=== PATIENT | male | born 1960 | race Caucasian/White ===

== ENCOUNTER 2022-06-17 14:37 | Inpatient (IN) | payer MEDICARE, OTHER ==
[~2022-06-17] VITALS: Ht 180.3 cm; Wt 66.1 kg
[~2022-06-17 14:37] MED LIST: CELE100C; FLUO10TA2
[2022-06-17 16:10] VITALS: BP 117/76
[2022-06-17] MEDS ORDERED: PIPERACILLIN/TAZOBACTAM SOD 3.375 GM in D5W MINI-BAG PLUS 50 ML IV SCH (16:50)
[2022-06-17] MEDS ORDERED: CYCL-707 PO (16:59)
[2022-06-17] MEDS ORDERED: NAPR220C23 PO (16:59)
[2022-06-17] MEDS ORDERED: HOME MED LIST COMPLETE! XX SCH (17:00)
[2022-06-17 17:53] LABS: HEMATOCRIT 31.7 % (42.0-52.0); HEMOGLOBIN 10.6 g/dl (13.5-17.5); MEAN CORPUSCULAR HEMOGLOBIN 27.2 pg (27.0-33.0); MEAN CORPUSCULAR HGB CONC 33.4 g/dl (32.0-36.5); MEAN CORPUSCULAR VOLUME 81.5 fl (80.0-96.0); PLATELET COUNT, AUTOMATED 149 10^3/uL (150-450); RED BLOOD COUNT 3.89 10^6/uL (4.30-6.10); WHITE BLOOD COUNT 5.7 10^3/uL (4.0-10.0)
[2022-06-17] MEDS ORDERED: LIDOCAINE 2% 5ML JELLY UROJET TOP ONE (18:00)
[2022-06-17 18:41] LABS: ALBUMIN 3.7 GM/DL (3.2-5.2); BILIRUBIN,TOTAL 0.4 MG/DL (0.2-1.0); CALCIUM LEVEL 9.4 MG/DL (8.8-10.2); CREATININE FOR GFR 2.28 MG/DL (0.70-1.30); GLOMERULAR FILTRATION RATE 31.3 (>49); POTASSIUM SERUM 4.4 MEQ/L (3.5-5.1)
[2022-06-17 20:00] VITALS: BP 117/82
[2022-06-17] MEDS: PIPERACILLIN/TAZOBACTAM SOD 2.25 GM in D5W MINI-BAG PLUS 50 ML IV SCH (20:17)
[2022-06-17] MEDS ORDERED: ALPRAZolam 0.5 MG TAB PO ONE (22:35)
[2022-06-18] VITALS (21 sets, daily range): BP systolic 60–117; BP diastolic 54–75
[2022-06-18] MEDS ORDERED: HYDROMORPHONE HCL 0.5 MG/ 0.5 ML SYRINGE (J1170 PER 1) IV ONE (02:00)
[2022-06-18] MEDS: PIPERACILLIN/TAZOBACTAM SOD 2.25 GM in D5W MINI-BAG PLUS 50 ML IV SCH ×4 (02:09→20:07)
[2022-06-18] MEDS ORDERED: NS 1,000 ML IV SCH (06:30)
[2022-06-18] MEDS ORDERED: NS 1,000 ML IV ONE ×2 (06:30)
[2022-06-18 07:05] LABS: HEMATOCRIT 37.6 % (42.0-52.0); HEMOGLOBIN 12.2 g/dl (13.5-17.5); MEAN CORPUSCULAR HEMOGLOBIN 26.7 pg (27.0-33.0); MEAN CORPUSCULAR HGB CONC 32.4 g/dl (32.0-36.5); MEAN CORPUSCULAR VOLUME 82.3 fl (80.0-96.0); PLATELET COUNT, AUTOMATED 181 10^3/uL (150-450); RED BLOOD COUNT 4.57 10^6/uL (4.30-6.10); WHITE BLOOD COUNT 10.6 10^3/uL (4.0-10.0)
[2022-06-18] MEDS ORDERED: HYDROCORTISONE 100 MG/2 ML VIAL (J1720 PER 1) IV STA (07:06)
[2022-06-18 07:38] LABS: CALCIUM LEVEL 8.9 MG/DL (8.8-10.2); CREATININE FOR GFR 2.71 MG/DL (0.70-1.30); GLOMERULAR FILTRATION RATE 25.7 (>49); POTASSIUM SERUM 3.9 MEQ/L (3.5-5.1)
[2022-06-18] MEDS ORDERED: NS 500 ML IV ONE (08:40)
[2022-06-18] MEDS ORDERED: PANTOPRAZOLE 40MG VIAL IV SCH (12:00)
[2022-06-18] MEDS: NS 1,000 ML IV SCH ×2 (12:03→18:14)
[2022-06-19] VITALS: BP 103/69
[2022-06-19] MEDS: PIPERACILLIN/TAZOBACTAM SOD 2.25 GM in D5W MINI-BAG PLUS 50 ML IV SCH ×4 (01:30→19:23)
[2022-06-19 04:00] VITALS: BP 99/54
[2022-06-19 05:15] LABS: HEMATOCRIT 27.8 % (42.0-52.0); MEAN CORPUSCULAR HEMOGLOBIN 26.9 pg (27.0-33.0); MEAN CORPUSCULAR HGB CONC 32.7 g/dl (32.0-36.5); MEAN CORPUSCULAR VOLUME 82.2 fl (80.0-96.0); PLATELET COUNT, AUTOMATED 127 10^3/uL (150-450); RED BLOOD COUNT 3.38 10^6/uL (4.30-6.10); WHITE BLOOD COUNT 6.7 10^3/uL (4.0-10.0)
[2022-06-19 05:17] LABS: HEMOGLOBIN 9.1 g/dl (13.5-17.5)
[2022-06-19 06:51] LABS: ALBUMIN 2.5 GM/DL (3.2-5.2); ALT/SGPT < 6 U/L (12-78); BILIRUBIN,TOTAL 0.3 MG/DL (0.2-1.0); BLOOD UREA NITROGEN 28 MG/DL (7-18); CALCIUM LEVEL 7.7 MG/DL (8.8-10.2); CARBON DIOXIDE LEVEL 24 MEQ/L (21-32); CHLORIDE LEVEL 101 MEQ/L (98-107); CREATININE FOR GFR 2.47 MG/DL (0.70-1.30); GLOMERULAR FILTRATION RATE 28.6 (>49); GLUCOSE, FASTING 197 MG/DL (70-100); POTASSIUM SERUM 3.6 MEQ/L (3.5-5.1); SODIUM LEVEL 132 MEQ/L (136-145); TOTAL PROTEIN 6.1 GM/DL (6.4-8.2)
[2022-06-19] MEDS ORDERED: NS 1,000 ML IV SCH (06:55)
[2022-06-19] MEDS: CYCLOBENZAPRINE 10MG TABLET PO PRN (07:51)
[2022-06-19 08:00] VITALS: BP 113/67
[2022-06-19] MEDS: NS 1,000 ML IV SCH ×2 (08:56→19:17)
[2022-06-19 14:00] VITALS: BP 100/64
[2022-06-19] MEDS: PERCOCET 5MG/325MG TAB PO PRN (18:51)
[2022-06-19] MEDS: oxyBUTYnin 5 MG TAB PO PRN (19:23)
[2022-06-19 20:00] VITALS: BP 118/71
[2022-06-20] MEDS: PIPERACILLIN/TAZOBACTAM SOD 2.25 GM in D5W MINI-BAG PLUS 50 ML IV SCH ×4 (01:07→19:57)
[2022-06-20] MEDS: PERCOCET 5MG/325MG TAB PO PRN ×2 (01:08→08:04)
[2022-06-20 04:00] VITALS: BP 114/58
[2022-06-20 05:47] LABS: HEMATOCRIT 26.1 % (42.0-52.0); HEMOGLOBIN 8.5 g/dl (13.5-17.5); MEAN CORPUSCULAR HEMOGLOBIN 26.8 pg (27.0-33.0); MEAN CORPUSCULAR HGB CONC 32.6 g/dl (32.0-36.5); MEAN CORPUSCULAR VOLUME 82.3 fl (80.0-96.0); PLATELET COUNT, AUTOMATED 132 10^3/uL (150-450); RED BLOOD COUNT 3.17 10^6/uL (4.30-6.10); WHITE BLOOD COUNT 4.7 10^3/uL (4.0-10.0)
[2022-06-20 06:15] LABS: CALCIUM LEVEL 7.9 MG/DL (8.8-10.2); CREATININE FOR GFR 2.15 MG/DL (0.70-1.30); GLOMERULAR FILTRATION RATE 33.5 (>49); POTASSIUM SERUM 3.2 MEQ/L (3.5-5.1)
[2022-06-20] MEDS ORDERED: POTASSIUM CHLORIDE 10MEQ SR TABLET PO ONE (07:00)
[2022-06-20 08:00] VITALS: BP 113/68
[2022-06-20] MEDS: oxyBUTYnin 5 MG TAB PO PRN (08:04)
[2022-06-20 08:14] LABS: MAGNESIUM LEVEL 1.7 MG/DL (1.8-2.4); PERCENT SATURATION 59.3 % (19.7-50.0)
[2022-06-20] MEDS ORDERED: MAG SULF 1GM/100ML (MAG RUN) 1 GM in IV 1 EA IV ONE (10:00)
[2022-06-20] MEDS: CYCLOBENZAPRINE 10MG TABLET PO PRN (10:06)
[2022-06-20] MEDS: NS 1,000 ML IV SCH ×2 (10:07→18:11)
[2022-06-20 12:00] VITALS: BP 111/72
[2022-06-20 16:30] VITALS: BP 112/67
[2022-06-20 21:32] VITALS: BP 108/65
[2022-06-21] VITALS (7 sets, daily range): BP systolic 104–131; BP diastolic 64–76
[2022-06-21] MEDS: NS 1,000 ML IV SCH (00:20)
[2022-06-21] MEDS: PERCOCET 5MG/325MG TAB PO PRN ×4 (00:21→20:42)
[2022-06-21] MEDS: PIPERACILLIN/TAZOBACTAM SOD 2.25 GM in D5W MINI-BAG PLUS 50 ML IV SCH ×3 (03:48→14:00)
[2022-06-21 06:18] LABS: HEMATOCRIT 24.8 % (42.0-52.0); HEMOGLOBIN 7.9 g/dl (13.5-17.5); MEAN CORPUSCULAR HEMOGLOBIN 26.6 pg (27.0-33.0); MEAN CORPUSCULAR HGB CONC 31.9 g/dl (32.0-36.5); MEAN CORPUSCULAR VOLUME 83.5 fl (80.0-96.0); PLATELET COUNT, AUTOMATED 141 10^3/uL (150-450); RED BLOOD COUNT 2.97 10^6/uL (4.30-6.10); WHITE BLOOD COUNT 4.8 10^3/uL (4.0-10.0)
[2022-06-21 06:55] LABS: CALCIUM LEVEL 7.9 MG/DL (8.8-10.2); CREATININE FOR GFR 1.82 MG/DL (0.70-1.30); GLOMERULAR FILTRATION RATE 40.7 (>49); MAGNESIUM LEVEL 1.8 MG/DL (1.8-2.4); POTASSIUM SERUM 3.3 MEQ/L (3.5-5.1)
[2022-06-21 08:09] LABS: FOLATE 2.3 ng/mL (>3.0)
[2022-06-21] MEDS ORDERED: FLUBLOK(EGG FREE)(QUAD)INFLUENZA VACC 0.5ML SYRINGE 18YRS & OLDER IM.IMMUN ONE (09:00)
[2022-06-21] MEDS ORDERED: POTASSIUM CHLORIDE 10MEQ SR TABLET PO ONE (12:35)
[2022-06-21] MEDS ORDERED: NS 1,000 ML IV ONE (12:55)
[2022-06-21 13:30] LABS: HEMATOCRIT 26.7 % (42.0-52.0); HEMOGLOBIN 8.8 g/dl (13.5-17.5)
[2022-06-21] MEDS: oxyBUTYnin 5 MG TAB PO PRN (13:43)
[2022-06-21 16:43] LABS: HEMATOCRIT 26.4 % (42.0-52.0); HEMOGLOBIN 8.5 g/dl (13.5-17.5)
[2022-06-21 17:06] LABS: CALCIUM LEVEL 7.8 MG/DL (8.8-10.2); CREATININE FOR GFR 1.76 MG/DL (0.70-1.30); GLOMERULAR FILTRATION RATE 42.3 (>49); POTASSIUM SERUM 3.4 MEQ/L (3.5-5.1)
[2022-06-21] MEDS: AMOXICILLIN 875 MG TAB PO SCH (20:42)
[2022-06-21] MEDS ORDERED: diphenhydrAMINE 25MG CAP PO ONE (22:15)
[2022-06-22 05:06] VITALS: BP 126/77
[2022-06-22] MEDS: oxyBUTYnin 5 MG TAB PO PRN ×2 (05:09→12:18)
[2022-06-22] MEDS: PERCOCET 5MG/325MG TAB PO PRN ×2 (05:09→12:19)
[2022-06-22] MEDS: AMOXICILLIN 875 MG TAB PO SCH (08:09)
[2022-06-22] MEDS: CYCLOBENZAPRINE 10MG TABLET PO PRN (12:58)
[2022-06-22] MEDS ORDERED: BACITAB PO (13:28)
[2022-06-22] MEDS ORDERED: OXYB5TAB10 PO (13:28)
[2022-06-22] MEDS ORDERED: SENO8.6T10 PO (13:28)
[2022-06-22] MEDS ORDERED: PERCOCET PO (13:28)
[2022-06-22] MEDS ORDERED: AMOX875T PO (13:28)
== END 2022-06-22 15:00 | disposition home or self-care (01) | DRG 872 ==
LOC: M MSPAV 16:10 → M ICU 06-18 07:19 → M MS5PR 06-20 16:14
PROVIDERS: ADMIT Internal Medicine Nephrology; ATTEND General Practice
PROC: 0T7D8ZZ Dilation of Urethra, Via Natural or Artificial Opening Endoscopic (ICD-10-PCS; principal; 2022-06-17)
DX: A41.9 Sepsis, unspecified organism (principal); N13.30 Unspecified hydronephrosis; N39.0 Urinary tract infection, site not specified; N17.9 Acute kidney failure, unspecified; R65.20 Severe sepsis without septic shock; M45.9 Ankylosing spondylitis of unspecified sites in spine; D64.9 Anemia, unspecified; M19.90 Unspecified osteoarthritis, unspecified site; F32.A Depression, unspecified; J45.909 Unspecified asthma, uncomplicated; R33.9 Retention of urine, unspecified; N35.912 Unspecified bulbous urethral stricture, male; I10 Essential (primary) hypertension; R31.9 Hematuria, unspecified; K21.9 Gastro-esophageal reflux disease without esophagitis

== ENCOUNTER 2022-07-06 21:22 | Inpatient (IN) | payer MEDICARE ==
[~2022-07-06] VITALS: Ht 180.3 cm; Wt 60.9 kg
[~2022-07-06 21:22] MED LIST changes: +AMOX875T PO; +BACITAB PO; +CYCL-707 PO; +NAPR220C23 PO; +OXYB5TAB10 PO; +PERCOCET PO; +SENO8.6T10 PO
[2022-07-06 22:33] LABS: BASO # 0.1 10^3/uL (0.0-0.2); BASO % 2.4 % (0.0-1.0); EOS # 0.5 10^3/uL (0.0-0.5); EOS % 10.3 % (0.0-3.0); HEMATOCRIT 31.2 % (42.0-52.0); HEMOGLOBIN 9.9 g/dl (13.5-17.5); LYMPH # 1.4 10^3/uL (1.5-5.0); LYMPH % 28.9 % (24.0-44.0); MEAN CORPUSCULAR HEMOGLOBIN 26.6 pg (27.0-33.0); MEAN CORPUSCULAR HGB CONC 31.7 g/dl (32.0-36.5); MEAN CORPUSCULAR VOLUME 83.9 fl (80.0-96.0); MONO # 0.3 10^3/uL (0.0-0.8); MONO % 6.6 % (2.0-8.0); NEUTROPHILS # 2.4 10^3/uL (1.5-8.5); NEUTROPHILS % 51.6 % (36.0-66.0); RED BLOOD COUNT 3.72 10^6/uL (4.30-6.10); WHITE BLOOD COUNT 4.7 10^3/uL (4.0-10.0)
[2022-07-06 22:41] LABS: INR 1.02; PROTHROMBIN TIME 13.6 SECONDS (12.5-14.5)
[2022-07-06 22:42] LABS: PARTIAL THROMBOPLASTIN TIME 39.2 SECONDS (24.8-34.2)
[2022-07-06 22:54] LABS: PLATELET COUNT, AUTOMATED 92 10^3/uL (150-450)
[2022-07-06 23:05] LABS: ALBUMIN 3.4 GM/DL (3.2-5.2); ALT/SGPT 11 U/L (12-78); BILIRUBIN,TOTAL 0.4 MG/DL (0.2-1.0); BLOOD UREA NITROGEN 10 MG/DL (7-18); CALCIUM LEVEL 8.2 MG/DL (8.8-10.2); CARBON DIOXIDE LEVEL 30 MEQ/L (21-32); CHLORIDE LEVEL 105 MEQ/L (98-107); CREATININE FOR GFR 1.16 MG/DL (0.70-1.30); GLOMERULAR FILTRATION RATE > 60.0 (>49); GLUCOSE, FASTING 83 MG/DL (70-100); POTASSIUM SERUM 2.9 MEQ/L (3.5-5.1); SODIUM LEVEL 140 MEQ/L (136-145); TOTAL PROTEIN 6.4 GM/DL (6.4-8.2)
[2022-07-06] MEDS ORDERED: POTASSIUM CHLORIDE 10MEQ SR TABLET PO ONE (23:50)
[2022-07-07 00:05] LABS: ACETAMINOPHEN LEVEL < 2.0 UG/ML (10.0-30.0); SALICYLATE LEVEL < 1.7 MG/DL (5.0-30.0)
[2022-07-07 01:30] LABS: ETHYL ALCOHOL (ETHANOL) < 0.003 % (0.000-0.010)
[2022-07-07 01:58] LABS: RSV AMPLIFICATION NEGATIVE (NEGATIVE)
[2022-07-07 02:09] LABS: AMPHETAMINES LEVEL URINE NEGATIVE (NEGATIVE); BARBITURATES URINE NEGATIVE (NEGATIVE); BENZODIAZEPINES URINE NEGATIVE (NEGATIVE); CANNABINOIDS URINE NEGATIVE (NEGATIVE); COCAINE METABOLITE URINE NEGATIVE (NEGATIVE); METHADONE URINE NEGATIVE (NEGATIVE); OPIATES URINE NEGATIVE (NEGATIVE); PHENCYCLIDINE URINE NEGATIVE (NEGATIVE)
[2022-07-07] MEDS ORDERED: LOPE-39 PO (03:46)
[2022-07-07] MEDS ORDERED: HOME MED LIST COMPLETE! XX SCH (03:50)
[2022-07-07 14:28] LABS: BLOOD UREA NITROGEN 10 MG/DL (7-18); CALCIUM LEVEL 8.8 MG/DL (8.8-10.2); CARBON DIOXIDE LEVEL 27 MEQ/L (21-32); CHLORIDE LEVEL 109 MEQ/L (98-107); CREATININE FOR GFR 1.13 MG/DL (0.70-1.30); GLOMERULAR FILTRATION RATE > 60.0 (>49); GLUCOSE, FASTING 116 MG/DL (70-100); POTASSIUM SERUM 4.3 MEQ/L (3.5-5.1); SODIUM LEVEL 143 MEQ/L (136-145)
[2022-07-07] MEDS ORDERED: ACETAMINOPHEN TAB 650MG DOSE (2X325MG) PO PRN (16:30)
[2022-07-07] MEDS ORDERED: traZODone 50 MG TAB PO PRN (16:30)
[2022-07-07] MEDS ORDERED: NICOTINE 7 MG/24 HR TRANSDERMAL TD PRN (16:30)
[2022-07-07 22:36] VITALS: BP 113/78
[2022-07-08] MEDS ORDERED: LORazepam 2 MG/ML VIAL IM STA (00:02)
[2022-07-08 06:30] VITALS: BP 108/61
[2022-07-08 16:14] VITALS: BP 108/72
[2022-07-08] MEDS: IBUPROFEN 800 MG TAB PO PRN (20:54)
[2022-07-08 21:57] LABS: FREE THYROXINE INDEX 3.6 % (1.4-3.8); T UPTAKE 31 % (33-40); THYROXINE (T4) 11.7 UG/DL (4.5-12.0)
[2022-07-09 06:39] VITALS: BP 135/65
[2022-07-09] MEDS: FOLIC ACID 1MG TAB PO SCH (09:52)
[2022-07-09] MEDS: FLUoxetine 10 MG CAP PO SCH (10:36)
[2022-07-09 11:15] LABS: BASO # 0.1 10^3/uL (0.0-0.2); BASO % 2.4 % (0.0-1.0); EOS # 0.5 10^3/uL (0.0-0.5); EOS % 14.3 % (0.0-3.0); HEMOGLOBIN 9.9 g/dl (13.5-17.5); LYMPH # 1.3 10^3/uL (1.5-5.0); MEAN CORPUSCULAR HEMOGLOBIN 26.7 pg (27.0-33.0); MEAN CORPUSCULAR HGB CONC 31.9 g/dl (32.0-36.5); MEAN CORPUSCULAR VOLUME 83.6 fl (80.0-96.0); MONO # 0.2 10^3/uL (0.0-0.8); MONO % 5.7 % (2.0-8.0); NEUTROPHILS # 1.3 10^3/uL (1.5-8.5); NEUTROPHILS % 38.6 % (36.0-66.0); PLATELET COUNT, AUTOMATED 98 10^3/uL (150-450); RED BLOOD COUNT 3.71 10^6/uL (4.30-6.10); WHITE BLOOD COUNT 3.4 10^3/uL (4.0-10.0)
[2022-07-09 16:25] VITALS: BP 110/60
[2022-07-10 06:29] VITALS: BP 101/58
[2022-07-10] MEDS: FOLIC ACID 1MG TAB PO SCH (09:12)
[2022-07-10] MEDS: FLUoxetine 10 MG CAP PO SCH (09:12)
[2022-07-10] MEDS ORDERED: LOPERAMIDE 2 MG CAPLET PO PRN (11:00)
[2022-07-10 12:23] LABS: ALT/SGPT 7 U/L (12-78); BILIRUBIN,TOTAL 0.5 MG/DL (0.2-1.0); BLOOD UREA NITROGEN 12 MG/DL (7-18); CALCIUM LEVEL 8.8 MG/DL (8.8-10.2); CARBON DIOXIDE LEVEL 29 MEQ/L (21-32); CHLORIDE LEVEL 106 MEQ/L (98-107); CREATININE FOR GFR 1.18 MG/DL (0.70-1.30); GLOMERULAR FILTRATION RATE > 60.0 (>49); GLUCOSE, FASTING 67 MG/DL (70-100); SODIUM LEVEL 139 MEQ/L (136-145); TOTAL PROTEIN 6.1 GM/DL (6.4-8.2)
[2022-07-10 16:18] VITALS: BP 104/59
[2022-07-11 06:11] VITALS: BP 106/59
[2022-07-11] MEDS: FLUoxetine 10 MG CAP PO SCH (09:53)
[2022-07-11] MEDS: FOLIC ACID 1MG TAB PO SCH (09:53)
[2022-07-11 10:19] LABS: HEPATITIS B SURFACE ANTIGEN NEGATIVE (NEGATIVE)
[2022-07-11 10:44] LABS: HEPATITIS B CORE ANTIBODY IGM NEGATIVE (NEGATIVE)
[2022-07-11 10:45] LABS: HIV 1&2 SCREEN CENTAUR NEGATIVE (NEGATIVE)
[2022-07-11] MEDS ORDERED: VARIBAR PUDDING 40% w/v 230ML TUBE As Ordered ONE (10:49)
[2022-07-11] MEDS ORDERED: E-Z-PAQUE 96% w/w SUSP 176GM BTL As Ordered ONE (10:50)
[2022-07-11] MEDS ORDERED: VARIBAR NECTAR 40% w/v 240ML SUSP BTL As Ordered ONE (10:50)
[2022-07-11 18:11] VITALS: BP 95/54
[2022-07-12 06:29] VITALS: BP 100/57
[2022-07-12] MEDS: FOLIC ACID 1MG TAB PO SCH (08:50)
[2022-07-12] MEDS: FLUoxetine 10 MG CAP PO SCH (08:50)
[2022-07-12 11:26] LABS: HEMATOCRIT 28.2 % (42.0-52.0); HEMOGLOBIN 9.1 g/dl (13.5-17.5); MEAN CORPUSCULAR HEMOGLOBIN 26.9 pg (27.0-33.0); MEAN CORPUSCULAR HGB CONC 32.3 g/dl (32.0-36.5); MEAN CORPUSCULAR VOLUME 83.4 fl (80.0-96.0); PLATELET COUNT, AUTOMATED 101 10^3/uL (150-450); RED BLOOD COUNT 3.38 10^6/uL (4.30-6.10); WHITE BLOOD COUNT 3.4 10^3/uL (4.0-10.0)
[2022-07-12 12:05] LABS: BLOOD UREA NITROGEN 13 MG/DL (7-18); CALCIUM LEVEL 8.1 MG/DL (8.8-10.2); CARBON DIOXIDE LEVEL 30 MEQ/L (21-32); CHLORIDE LEVEL 102 MEQ/L (98-107); CREATININE FOR GFR 1.23 MG/DL (0.70-1.30); GLOMERULAR FILTRATION RATE > 60.0 (>49); GLUCOSE, FASTING 86 MG/DL (70-100); POTASSIUM SERUM 3.7 MEQ/L (3.5-5.1); SODIUM LEVEL 136 MEQ/L (136-145)
[2022-07-12 18:08] VITALS: BP 108/61
[2022-07-13 06:01] VITALS: BP 96/57
[2022-07-13] MEDS: FOLIC ACID 1MG TAB PO SCH (09:52)
[2022-07-13] MEDS: FLUoxetine 10 MG CAP PO SCH (09:52)
[2022-07-13 17:52] VITALS: BP 102/62
[2022-07-14 06:09] VITALS: BP 100/59
[2022-07-14] MEDS ORDERED: FLUoxetine 10 MG CAP PO SCH (09:00)
[2022-07-14] MEDS: FLUoxetine 20MG CAP PO SCH (09:55)
[2022-07-14] MEDS: FOLIC ACID 1MG TAB PO SCH (09:55)
[2022-07-14 18:13] VITALS: BP 114/58
[2022-07-15 06:04] VITALS: BP 110/65
[2022-07-15] MEDS: FLUoxetine 20MG CAP PO SCH (09:07)
[2022-07-15] MEDS: FOLIC ACID 1MG TAB PO SCH (09:07)
[2022-07-15 18:02] VITALS: BP 120/69
[2022-07-16 04:15] VITALS: BP 105/67
[2022-07-16 06:35] VITALS: BP 104/61
[2022-07-16 06:56] LABS: BASO # 0.1 10^3/uL (0.0-0.2); BASO % 1.9 % (0.0-1.0); EOS # 0.4 10^3/uL (0.0-0.5); EOS % 11.9 % (0.0-3.0); HEMATOCRIT 28.6 % (42.0-52.0); HEMOGLOBIN 9.5 g/dl (13.5-17.5); LYMPH # 1.2 10^3/uL (1.5-5.0); LYMPH % 38.8 % (24.0-44.0); MEAN CORPUSCULAR HEMOGLOBIN 27.1 pg (27.0-33.0); MEAN CORPUSCULAR HGB CONC 33.2 g/dl (32.0-36.5); MEAN CORPUSCULAR VOLUME 81.5 fl (80.0-96.0); MONO # 0.3 10^3/uL (0.0-0.8); MONO % 8.4 % (2.0-8.0); NEUTROPHILS # 1.2 10^3/uL (1.5-8.5); NEUTROPHILS % 38.7 % (36.0-66.0); PLATELET COUNT, AUTOMATED 115 10^3/uL (150-450); RED BLOOD COUNT 3.51 10^6/uL (4.30-6.10); WHITE BLOOD COUNT 3.2 10^3/uL (4.0-10.0)
[2022-07-16 07:30] LABS: BLOOD UREA NITROGEN 17 MG/DL (7-18); CALCIUM LEVEL 8.8 MG/DL (8.8-10.2); CARBON DIOXIDE LEVEL 28 MEQ/L (21-32); CHLORIDE LEVEL 103 MEQ/L (98-107); CREATININE FOR GFR 1.21 MG/DL (0.70-1.30); GLOMERULAR FILTRATION RATE > 60.0 (>49); GLUCOSE, FASTING 77 MG/DL (70-100); POTASSIUM SERUM 4.5 MEQ/L (3.5-5.1); SODIUM LEVEL 136 MEQ/L (136-145)
[2022-07-16] MEDS: FOLIC ACID 1MG TAB PO SCH (09:15)
[2022-07-16] MEDS: FLUoxetine 20MG CAP PO SCH (09:15)
[2022-07-16 11:29] VITALS: BP 107/72
[2022-07-16 18:00] VITALS: BP 126/65
[2022-07-17 06:16] VITALS: BP 109/66
[2022-07-17] MEDS: FOLIC ACID 1MG TAB PO SCH (08:45)
[2022-07-17] MEDS: FLUoxetine 20MG CAP PO SCH (08:46)
[2022-07-17 09:55] VITALS: BP 109/66
[2022-07-17 18:34] VITALS: BP 112/68
[2022-07-18 06:06] VITALS: BP 99/59
[2022-07-18] MEDS: FLUoxetine 20MG CAP PO SCH (09:27)
[2022-07-18] MEDS: FOLIC ACID 1MG TAB PO SCH (09:27)
[2022-07-18] MEDS: IBUPROFEN 800 MG TAB PO PRN (09:31)
[2022-07-18 16:26] VITALS: BP 122/74
[2022-07-18 16:46] VITALS: BP 125/84
[2022-07-18 16:47] VITALS: BP 116/68
[2022-07-19 06:25] VITALS: BP 97/54
[2022-07-19] MEDS: FOLIC ACID 1MG TAB PO SCH (09:16)
[2022-07-19] MEDS: FLUoxetine 20MG CAP PO SCH (09:16)
[2022-07-19] MEDS ORDERED: FOLI1TAB11 PO (09:23)
[2022-07-19] MEDS ORDERED: TRAZ-252 PO (09:23)
[2022-07-19] MEDS ORDERED: IBUP80TA PO (09:23)
[2022-07-19] MEDS ORDERED: HYDR-3363 PO (09:23)
[2022-07-19] MEDS ORDERED: FLUO20CA22 PO (09:23)
== END 2022-07-19 10:01 | disposition home or self-care (01) | DRG 885 ==
LOC: M ED 21:22 → M ED INP 07-07 16:20 → M PSY 07-07 22:16
PROVIDERS: ADMIT Psychiatry & Neurology Psychiatry; ATTEND Psychiatry & Neurology Psychiatry
DX: F33.1 Major depressive disorder, recurrent, moderate (principal); R45.851 Suicidal ideations; F41.0 Panic disorder [episodic paroxysmal anxiety]; Z88.2 Allergy status to sulfonamides; Z79.899 Other long term (current) drug therapy; M19.90 Unspecified osteoarthritis, unspecified site; J45.20 Mild intermittent asthma, uncomplicated; D64.9 Anemia, unspecified; K21.9 Gastro-esophageal reflux disease without esophagitis; M45.9 Ankylosing spondylitis of unspecified sites in spine; Z63.5 Disruption of family by separation and divorce; E02 Subclinical iodine-deficiency hypothyroidism; D69.6 Thrombocytopenia, unspecified; R94.31 Abnormal electrocardiogram [ECG] [EKG]; G89.29 Other chronic pain

== ENCOUNTER 2022-07-25 10:42 | Emergency (ER) | payer MEDICARE ==
[~2022-07-25] VITALS: Ht 180.3 cm; Wt 61.8 kg
[~2022-07-25 10:42] MED LIST changes: +FLUO20CA22 PO; +FOLI1TAB11 PO; +HYDR-3363 PO; +IBUP80TA PO; +LOPE-39 PO; +TRAZ-252 PO
[2022-07-25 11:54] LABS: BASO # 0.1 10^3/uL (0.0-0.2); BASO % 2.5 % (0.0-1.0); EOS # 0.3 10^3/uL (0.0-0.5); EOS % 7.7 % (0.0-3.0); HEMATOCRIT 32.4 % (42.0-52.0); HEMOGLOBIN 10.5 g/dl (13.5-17.5); LYMPH # 1.2 10^3/uL (1.5-5.0); MEAN CORPUSCULAR HEMOGLOBIN 26.7 pg (27.0-33.0); MEAN CORPUSCULAR HGB CONC 32.4 g/dl (32.0-36.5); MEAN CORPUSCULAR VOLUME 82.4 fl (80.0-96.0); MONO # 0.3 10^3/uL (0.0-0.8); MONO % 6.8 % (2.0-8.0); NEUTROPHILS # 1.9 10^3/uL (1.5-8.5); NEUTROPHILS % 50.7 % (36.0-66.0); PLATELET COUNT, AUTOMATED 151 10^3/uL (150-450); RED BLOOD COUNT 3.93 10^6/uL (4.30-6.10); WHITE BLOOD COUNT 3.7 10^3/uL (4.0-10.0)
[2022-07-25 12:35] LABS: CALCIUM LEVEL 9.2 MG/DL (8.8-10.2); CREATININE FOR GFR 1.38 MG/DL (0.70-1.30); GLOMERULAR FILTRATION RATE 55.8 (>49); POTASSIUM SERUM 3.2 MEQ/L (3.5-5.1)
[2022-07-25] MEDS ORDERED: ISOVUE-370 76% 100ML VIAL As Ordered ONE (12:39)
[2022-07-25] MEDS ORDERED: NS 1,000 ML IV ONE (12:40)
[2022-07-25 16:12] VITALS: BP 128/75
== END 2022-07-25 16:23 | disposition home or self-care (01) ==
LOC: M ED 10:42
DX: K80.80 Other cholelithiasis without obstruction (principal); E86.0 Dehydration; I10 Essential (primary) hypertension; F41.9 Anxiety disorder, unspecified; F32.A Depression, unspecified; Z88.2 Allergy status to sulfonamides; Z79.899 Other long term (current) drug therapy; Z79.811 Long term (current) use of aromatase inhibitors
CPT/HCPCS: 36415; 74177; 80048; 81000; 81015; 83605; 85025; 87040; 87086; 87486; 87507; 87581; 87633; 87798; 99284; Q9967

== ENCOUNTER 2022-09-01 18:56 | Emergency (ER) | payer MEDICARE ==
[~2022-09-01] VITALS: Ht 190.5 cm; Wt 63.1 kg
[2022-09-01 18:58] VITALS: BP 122/80
== END 2022-09-01 23:31 | disposition home or self-care (01) ==
LOC: M ED 18:56
DX: F41.9 Anxiety disorder, unspecified (principal); I10 Essential (primary) hypertension; J45.909 Unspecified asthma, uncomplicated; F32.A Depression, unspecified; M54.50 Low back pain, unspecified; Z88.2 Allergy status to sulfonamides

== ENCOUNTER 2022-09-06 11:28 | Observation (INO) | payer MEDICARE, OTHER ==
[~2022-09-06] VITALS: Ht 180.3 cm; Wt 56.8 kg
[2022-09-06] MEDS: FOLIC ACID 1MG TAB PO SCH (09:00)
[2022-09-06 12:40] LABS: BILIRUBIN,DIRECT 0.2 MG/DL (<0.4)
[2022-09-06 12:43] LABS: BASO % 1.9 % (0.0-1.0); EOS # 0.2 10^3/uL (0.0-0.5); EOS % 7.4 % (0.0-3.0); HEMATOCRIT 28.8 % (42.0-52.0); HEMOGLOBIN 9.2 g/dl (13.5-17.5); LYMPH # 0.9 10^3/uL (1.5-5.0); LYMPH % 40.7 % (24.0-44.0); MEAN CORPUSCULAR HEMOGLOBIN 26.8 pg (27.0-33.0); MEAN CORPUSCULAR HGB CONC 31.9 g/dl (32.0-36.5); MONO # 0.1 10^3/uL (0.0-0.8); RED BLOOD COUNT 3.43 10^6/uL (4.30-6.10); WHITE BLOOD COUNT 2.2 10^3/uL (4.0-10.0)
[2022-09-06 12:47] LABS: THYROID STIMULATING HORMONE 3.677 uIU/ML (0.55-4.78)
[2022-09-06 12:58] LABS: ALBUMIN 3.6 G/DL (3.2-5.2); ALKALINE PHOSPHATASE 145 U/L (46-116); ALT/SGPT < 9 U/L (7.0-40); AST/SGOT 52 U/L (<34); BILIRUBIN,TOTAL 0.5 MG/DL (0.3-1.2); BLOOD UREA NITROGEN 14 MG/DL (9-23); CALCIUM LEVEL 8.4 MG/DL (8.3-10.6); CARBON DIOXIDE LEVEL 29 MMOL/L (20-31); CHLORIDE LEVEL 100 MMOL/L (98-107); CREATININE FOR GFR 1.52 MG/DL (0.70-1.30); GLOMERULAR FILTRATION RATE 49.9 (>49); GLUCOSE, FASTING 71 MG/DL (74-106); LIPASE 42 U/L (12-53); POTASSIUM SERUM 3.6 MMOL/L (3.5-5.1); SODIUM LEVEL 137 MMOL/L (136-145); TOTAL PROTEIN 6.7 G/DL (5.7-8.2)
[2022-09-06 13:00] LABS: INR 1.03; PROTHROMBIN TIME 13.7 SECONDS (12.5-14.5)
[2022-09-06 13:01] LABS: PARTIAL THROMBOPLASTIN TIME 32.4 SECONDS (24.8-34.2)
[2022-09-06 13:16] LABS: PLATELET COUNT, AUTOMATED 92 10^3/uL (150-450)
[2022-09-06] MEDS ORDERED: FOLI1TAB11 PO (15:20)
[2022-09-06] MEDS ORDERED: CYCL-707 PO (15:20)
[2022-09-06] MEDS ORDERED: TRAZ-252 PO (15:20)
[2022-09-06] MEDS ORDERED: MED REC COMMENT (15:20)
[2022-09-06] MEDS ORDERED: HYDR-3363 PO (15:20)
[2022-09-06] MEDS ORDERED: FLUO20CA22 PO (15:20)
[2022-09-06] MEDS ORDERED: IBUP80TA PO (15:20)
[2022-09-06] MEDS ORDERED: HOME MED LIST COMPLETE! XX SCH (15:25)
[2022-09-06 15:39] VITALS: O2SAT 93
[2022-09-06] MEDS ORDERED: CYCLOBENZAPRINE 10MG TABLET PO PRN (15:50)
[2022-09-06] MEDS ORDERED: traZODone 50 MG TAB PO PRN (15:50)
[2022-09-06] MEDS: FLUoxetine 20MG CAP PO SCH (16:11)
[2022-09-06] MEDS: LR 1,000 ML IV SCH (16:45)
[2022-09-06 17:22] LABS: TOTAL IRON BINDING CAPACITY 175 UG/DL (250-425); TOTAL PROTEIN 6.6 GM/DL (6.4-8.2)
[2022-09-06 17:24] LABS: IRON (FE) 39 UG/DL (65-175); PERCENT SATURATION 22.3 % (19.7-50.0)
[2022-09-06 17:25] LABS: FERRITIN 354.4 NG/ML (10.5-307.3); FOLATE 10.86 NG/ML (>5.4)
[2022-09-06 17:27] LABS: VITAMIN B12 LEVEL 442 PG/ML (211-911)
[2022-09-07] MEDS: LR 1,000 ML IV SCH (04:20)
[2022-09-07 06:29] LABS: BASO % 1.7 % (0.0-1.0); EOS # 0.2 10^3/uL (0.0-0.5); EOS % 7.2 % (0.0-3.0); HEMATOCRIT 26.4 % (42.0-52.0); HEMOGLOBIN 8.7 g/dl (13.5-17.5); LYMPH % 40.7 % (24.0-44.0); MEAN CORPUSCULAR HEMOGLOBIN 27.4 pg (27.0-33.0); MEAN CORPUSCULAR VOLUME 83.3 fl (80.0-96.0); MONO # 0.2 10^3/uL (0.0-0.8); MONO % 8.5 % (2.0-8.0); NEUTROPHILS % 41.9 % (36.0-66.0); RED BLOOD COUNT 3.17 10^6/uL (4.30-6.10); WHITE BLOOD COUNT 2.4 10^3/uL (4.0-10.0)
[2022-09-07 06:47] LABS: CALCIUM LEVEL 8.1 MG/DL (8.3-10.6); CREATININE FOR GFR 1.52 MG/DL (0.70-1.30); GLOMERULAR FILTRATION RATE 49.9 (>49); POTASSIUM SERUM 3.7 MMOL/L (3.5-5.1)
[2022-09-07 07:01] LABS: PLATELET COUNT, AUTOMATED 87 10^3/uL (150-450)
[2022-09-07] MEDS: FLUoxetine 20MG CAP PO SCH (08:42)
[2022-09-07] MEDS: FOLIC ACID 1MG TAB PO SCH (08:42)
[2022-09-07] MEDS ORDERED: LIDOCAINE 1% MDV 20ML VIAL As Ordered ONE (14:34)
[2022-09-07 16:09] VITALS: BP 117/77
[2022-09-08 14:08] LABS: % CD4+ LYMPHS 54.5 % (30.8-58.5); ABSOLUTE CD4 HELPER 491 /uL (359-1519); BASOPHILS 2 % (Not Estab.); COMMENTS FOR T-CELL CD4 Note: (.); EOSINOPHILS 7 % (Not Estab.); EOSINOPHILS ABSOLUTE 0.2 x10E3/uL (0.0-0.4); HCT 30.7 % (37.5-51.0); HGB 9.9 g/dL (13.0-17.7); LYMPHOCYTES 38 % (Not Estab.); LYMPHOCYTES ABSOLUTE 0.9 x10E3/uL (0.7-3.1); MCH 27.4 pg (26.6-33.0); MCHC 32.2 g/dL (31.5-35.7); MCV 85 fL (79-97); MONOCYTES 6 % (Not Estab.); MONOCYTES ABSOLUTE 0.2 x10E3/uL (0.1-0.9); NEUTROPHILS 47 % (Not Estab.); NEUTROPHILS ABSOLUTE 1.2 x10E3/uL (1.4-7.0); PLT 87 x10E3/uL (150-450); RBC 3.61 x10E6/uL (4.14-5.80); RDW 14.8 % (11.6-15.4); WBC 2.5 x10E3/uL (3.4-10.8)
[2022-09-08 17:08] LABS: FREE KAPPA LIGHT CHAINS SERUM 50.9 mg/L (3.3-19.4); FREE LAMBDA LIGHT CHAINS SERUM 23.1 mg/L (5.7-26.3); KAPPA/LAMBDA RATIO SERUM 2.2 (0.26-1.65)
[2022-09-12 14:05] LABS: ALBUMIN 3.87 GM/DL (3.29-5.55); ALBUMIN % 58.7 % (55.8-66.1); ALPHA-1-GLOBULIN % 4.3 % (2.9-4.9); ALPHA-1-GLOBULINS 0.28 GM/DL (0.17-0.41); ALPHA-2-GLOBULINS 0.69 GM/DL (0.42-0.99); ALPHA-2-GLOBULINS % 10.5 % (7.1-11.8); BETA-1-GLOBULINS 0.21 GM/DL (0.28-0.60); BETA-1-GLOBULINS % 3.2 % (4.7-7.2); BETA-2-GLOBULINS % 4.6 % (3.2-6.5); GAMMA GLOBULIN % 18.7 % (11.1-18.8); GAMMA GLOBULINS 1.23 GM/DL (0.65-1.58)
== END 2022-09-07 16:21 | disposition home or self-care (01) ==
LOC: M ED 11:28 → EDBD 11:28 → M ED INP 11:29 → ENRESERV 09-07 13:40
PROVIDERS: ADMIT Family Medicine; ATTEND Family Medicine
DX: D61.818 Other pancytopenia (principal); R64 Cachexia; E46 Unspecified protein-calorie malnutrition; N18.31 Chronic kidney disease, stage 3a; Z88.2 Allergy status to sulfonamides; F41.0 Panic disorder [episodic paroxysmal anxiety]
CPT/HCPCS: 36415; 38221; 71046; 77012; 80048; 80076; 82607; 82728; 82746; 83521; 83550; 83690; 83880; 84165; 84439; 84443; 84484; 85025; 85049; 85055; 85610; 85730; 86361; 86850; 86870; 86900; 86901; 87486; 87581; 87633; 87798; 88300; 88305; 88311; 88313; 93005; 93041; 94760; 96361; 96374; 99285; G0378

== ENCOUNTER 2022-09-14 13:49 | Inpatient (IN) | payer MEDICARE ==
[~2022-09-14] VITALS: Ht 180.3 cm; Wt 69.0 kg
[~2022-09-14 13:49] MED LIST changes: +MED REC COMMENT
[2022-09-14] MEDS ORDERED: NS 1,000 ML IV ONE ×2 (16:05→16:55)
[2022-09-14 16:28] LABS: BASO # 0.1 10^3/uL (0.0-0.2); BASO % 1.7 % (0.0-1.0); EOS # 0.2 10^3/uL (0.0-0.5); EOS % 4.7 % (0.0-3.0); HEMATOCRIT 33.2 % (42.0-52.0); HEMOGLOBIN 10.6 g/dl (13.5-17.5); LYMPH # 1.4 10^3/uL (1.5-5.0); LYMPH % 32.8 % (24.0-44.0); MEAN CORPUSCULAR HEMOGLOBIN 26.8 pg (27.0-33.0); MEAN CORPUSCULAR HGB CONC 31.9 g/dl (32.0-36.5); MEAN CORPUSCULAR VOLUME 84.1 fl (80.0-96.0); MONO # 0.2 10^3/uL (0.0-0.8); MONO % 5.7 % (2.0-8.0); NEUTROPHILS # 2.3 10^3/uL (1.5-8.5); NEUTROPHILS % 54.9 % (36.0-66.0); PLATELET COUNT, AUTOMATED 147 10^3/uL (150-450); RED BLOOD COUNT 3.95 10^6/uL (4.30-6.10); WHITE BLOOD COUNT 4.2 10^3/uL (4.0-10.0)
[2022-09-14 16:42] LABS: LIPASE 42 U/L (12-53); MAGNESIUM LEVEL 1.7 MG/DL (1.8-2.4)
[2022-09-14 16:43] LABS: BILIRUBIN,DIRECT 0.2 MG/DL (<0.4)
[2022-09-14 16:52] LABS: ALKALINE PHOSPHATASE 137 U/L (46-116); ALT/SGPT < 9 U/L (7.0-40); AST/SGOT 39 U/L (<34); BILIRUBIN,TOTAL 0.5 MG/DL (0.3-1.2); BLOOD UREA NITROGEN 13 MG/DL (9-23); CARBON DIOXIDE LEVEL 26 MMOL/L (20-31); CHLORIDE LEVEL 100 MMOL/L (98-107); CREATININE FOR GFR 1.41 MG/DL (0.70-1.30); GLOMERULAR FILTRATION RATE 54.4 (>49); GLUCOSE, FASTING 41 MG/DL (74-106); POTASSIUM SERUM 2.9 MMOL/L (3.5-5.1); SODIUM LEVEL 140 MMOL/L (136-145); TOTAL PROTEIN 7.2 G/DL (5.7-8.2)
[2022-09-14] MEDS ORDERED: POTASSIUM CHLORIDE 10MEQ SR TABLET PO ONE (16:55)
[2022-09-14] MEDS ORDERED: KCL 10MEQ/100ML SWI (KRUN) 10 MEQ in IV 1 EA IV ONE (16:55)
[2022-09-14] MEDS ORDERED: ISOVUE-370 76% 100ML VIAL As Ordered ONE (17:04)
[2022-09-14] MEDS ORDERED: POTASSIUM CHL PWD 20MEQ PACKET PO ONE (17:15)
[2022-09-14 17:26] LABS: CK-MB VALUE MASS < 1.0 NG/ML (<3.6)
[2022-09-14 17:27] LABS: CPK CREATINE PHOSPHOKINASE 40 U/L (46-171)
[2022-09-14 17:56] LABS: INR 0.99; PARTIAL THROMBOPLASTIN TIME 42.5 SECONDS (24.8-34.2); PROTHROMBIN TIME 13.3 SECONDS (12.5-14.5)
[2022-09-14 18:04] LABS: RSV AMPLIFICATION NEGATIVE (NEGATIVE)
[2022-09-14] MEDS ORDERED: LIDOCAINE 2% 5ML JELLY UROJET TOP ONE (18:50)
[2022-09-14 19:29] LABS: POTASSIUM SERUM 3.1 MMOL/L (3.5-5.1)
[2022-09-14] MEDS ORDERED: ALEV220T22 PO (22:20)
[2022-09-14] MEDS ORDERED: HOME MED LIST COMPLETE! XX SCH (22:20)
[2022-09-14] MEDS ORDERED: VITMTA PO (22:20)
[2022-09-15] MEDS: LR 1,000 ML IV SCH ×2 (00:45→11:33)
[2022-09-15] MEDS ORDERED: DEXTROSE 50% 50ML SYRINGE As Ordered ONE (02:27)
[2022-09-15] MEDS ORDERED: GLUCAGON INJ 1MG VIAL SC PRN (02:35)
[2022-09-15] MEDS ORDERED: GLUCOSE 4GM CHEW TABLET PO PRN (02:35)
[2022-09-15] MEDS ORDERED: DEXTROSE 50% 50ML SYRINGE IV STA (02:45)
[2022-09-15 03:22] VITALS: BP 118/68
[2022-09-15] MEDS ORDERED: MAG SULF 1GM/100ML (MAG RUN) 1 GM in IV 1 EA IV ONE ×2 (03:45→22:40)
[2022-09-15 04:00] VITALS: BP 90/58
[2022-09-15] MEDS: KCL 10MEQ/100ML SWI (KRUN) 10 MEQ in IV 1 EA IV SCH ×2 (04:02→05:24)
[2022-09-15 07:46] LABS: MAGNESIUM LEVEL 1.7 MG/DL (1.8-2.4)
[2022-09-15 07:47] LABS: CALCIUM LEVEL 8.3 MG/DL (8.3-10.6); CREATININE FOR GFR 1.32 MG/DL (0.70-1.30); GLOMERULAR FILTRATION RATE 58.7 (>49); POTASSIUM SERUM 3.7 MMOL/L (3.5-5.1)
[2022-09-15] MEDS: HEPARIN SOD (PORCINE) 5000UNITS/ML 1ML VIAL/SYRINGE SQ SCH ×2 (07:58→20:35)
[2022-09-15] MEDS: FLUoxetine 20MG CAP PO SCH (07:59)
[2022-09-15] MEDS: FOLIC ACID 1MG TAB PO SCH (07:59)
[2022-09-15 08:00] VITALS: BP 104/73
[2022-09-15] MEDS: ceFAZolin SOD 1 GM in D5W MINI-BAG PLUS 50 ML IV SCH ×2 (08:06→15:15)
[2022-09-15] MEDS ORDERED: DEXTROSE SCH (11:50)
[2022-09-15 12:00] VITALS: BP 99/64
[2022-09-15] MEDS ORDERED: D5W 1,000 ML IV SCH (12:05)
[2022-09-15] MEDS: D5W/LR 1,000 ML IV SCH (13:48)
[2022-09-15 16:00] VITALS: BP 91/57
[2022-09-15 20:00] VITALS: BP 109/68
[2022-09-16] MEDS: ceFAZolin SOD 1 GM in D5W MINI-BAG PLUS 50 ML IV SCH ×2 (00:12→09:32)
[2022-09-16] MEDS: D5W/LR 1,000 ML IV SCH ×3 (00:15→19:40)
[2022-09-16] MEDS ORDERED: RAMELTEON 8 MG TAB (ROZEREM) PO ONE (00:55)
[2022-09-16 04:00] VITALS: BP 114/68
[2022-09-16 05:46] LABS: EOS # 0.2 10^3/uL (0.0-0.5); EOS % 4.2 % (0.0-3.0); HEMATOCRIT 28.3 % (42.0-52.0); HEMOGLOBIN 9.3 g/dl (13.5-17.5); LYMPH # 0.8 10^3/uL (1.5-5.0); LYMPH % 19.7 % (24.0-44.0); MEAN CORPUSCULAR HEMOGLOBIN 27.4 pg (27.0-33.0); MEAN CORPUSCULAR HGB CONC 32.9 g/dl (32.0-36.5); MEAN CORPUSCULAR VOLUME 83.2 fl (80.0-96.0); MONO # 0.2 10^3/uL (0.0-0.8); MONO % 5.8 % (2.0-8.0); NEUTROPHILS # 2.6 10^3/uL (1.5-8.5); NEUTROPHILS % 68.8 % (36.0-66.0); PLATELET COUNT, AUTOMATED 120 10^3/uL (150-450); WHITE BLOOD COUNT 3.8 10^3/uL (4.0-10.0)
[2022-09-16 06:04] LABS: MAGNESIUM LEVEL 1.7 MG/DL (1.8-2.4)
[2022-09-16 06:20] LABS: ALBUMIN 2.6 G/DL (3.2-5.2); ALKALINE PHOSPHATASE 95 U/L (46-116); ALT/SGPT < 9 U/L (7.0-40); AST/SGOT 28 U/L (<34); BILIRUBIN,TOTAL 0.3 MG/DL (0.3-1.2); BLOOD UREA NITROGEN 12 MG/DL (9-23); CALCIUM LEVEL 8.1 MG/DL (8.3-10.6); CARBON DIOXIDE LEVEL 29 MMOL/L (20-31); CHLORIDE LEVEL 104 MMOL/L (98-107); CREATININE FOR GFR 1.31 MG/DL (0.70-1.30); GLOMERULAR FILTRATION RATE 59.2 (>49); GLUCOSE, FASTING 146 MG/DL (74-106); SODIUM LEVEL 139 MMOL/L (136-145); TOTAL PROTEIN 5.1 G/DL (5.7-8.2)
[2022-09-16 08:00] VITALS: BP 110/69
[2022-09-16] MEDS ORDERED: MAG SULF 1GM/100ML (MAG RUN) 1 GM in IV 1 EA IV SCH (08:00)
[2022-09-16] MEDS: FOLIC ACID 1MG TAB PO SCH (08:54)
[2022-09-16] MEDS: HEPARIN SOD (PORCINE) 5000UNITS/ML 1ML VIAL/SYRINGE SQ SCH (08:54)
[2022-09-16] MEDS: FLUoxetine 20MG CAP PO SCH (08:54)
[2022-09-16] MEDS: KCL 10MEQ/100ML SWI (KRUN) 10 MEQ in IV 1 EA IV SCH ×4 (10:41→14:33)
[2022-09-16 12:00] VITALS: BP 117/73
[2022-09-16] MEDS ORDERED: POTASSIUM CHLORIDE 10MEQ SR TABLET PO ONE (14:00)
[2022-09-16 16:00] VITALS: BP 107/67
[2022-09-16 20:00] VITALS: BP 102/68
[2022-09-17] MEDS: D5W/LR 1,000 ML IV SCH (05:47)
[2022-09-17 08:00] VITALS: BP 105/74
[2022-09-17] MEDS: FOLIC ACID 1MG TAB PO SCH (09:11)
[2022-09-17] MEDS: FLUoxetine 20MG CAP PO SCH (09:11)
[2022-09-17 09:20] LABS: BASO # 0.1 10^3/uL (0.0-0.2); BASO % 1.3 % (0.0-1.0); EOS # 0.3 10^3/uL (0.0-0.5); EOS % 8.8 % (0.0-3.0); HEMATOCRIT 28.3 % (42.0-52.0); HEMOGLOBIN 9.2 g/dl (13.5-17.5); LYMPH # 0.8 10^3/uL (1.5-5.0); LYMPH % 20.7 % (24.0-44.0); MEAN CORPUSCULAR HEMOGLOBIN 27.2 pg (27.0-33.0); MEAN CORPUSCULAR HGB CONC 32.5 g/dl (32.0-36.5); MEAN CORPUSCULAR VOLUME 83.7 fl (80.0-96.0); MONO # 0.3 10^3/uL (0.0-0.8); MONO % 7.2 % (2.0-8.0); NEUTROPHILS # 2.4 10^3/uL (1.5-8.5); NEUTROPHILS % 61.7 % (36.0-66.0); PLATELET COUNT, AUTOMATED 113 10^3/uL (150-450); RED BLOOD COUNT 3.38 10^6/uL (4.30-6.10); WHITE BLOOD COUNT 3.9 10^3/uL (4.0-10.0)
[2022-09-17 09:50] LABS: ALBUMIN 2.4 G/DL (3.2-5.2); ALKALINE PHOSPHATASE 95 U/L (46-116); ALT/SGPT < 9 U/L (7.0-40); AST/SGOT 26 U/L (<34); BILIRUBIN,TOTAL 0.3 MG/DL (0.3-1.2); BLOOD UREA NITROGEN 9 MG/DL (9-23); CALCIUM LEVEL 8.1 MG/DL (8.3-10.6); CARBON DIOXIDE LEVEL 31 MMOL/L (20-31); CHLORIDE LEVEL 107 MMOL/L (98-107); CREATININE FOR GFR 1.27 MG/DL (0.70-1.30); GLOMERULAR FILTRATION RATE > 60.0 (>49); GLUCOSE, FASTING 108 MG/DL (74-106); POTASSIUM SERUM 4.2 MMOL/L (3.5-5.1); SODIUM LEVEL 141 MMOL/L (136-145); TOTAL PROTEIN 4.8 G/DL (5.7-8.2)
[2022-09-17 12:00] VITALS: BP 101/67
[2022-09-17 16:00] VITALS: BP 118/71
[2022-09-17] MEDS ORDERED: FAT EMULSION IV 250 ML IV ONE (18:00)
[2022-09-17] MEDS: INSULIN LISPRO (NovoLOG) PER UNIT SC SCH ×2 (18:00→23:05)
[2022-09-17] MEDS: AMINO AC/ELECTROLYTE/DEX/CALC 1,000 ML IV SCH (18:23)
[2022-09-17 20:00] VITALS: BP 116/73
[2022-09-18] VITALS: BP 110/64
[2022-09-18 04:00] VITALS: BP 134/83
[2022-09-18] MEDS: INSULIN LISPRO (NovoLOG) PER UNIT SC SCH ×3 (05:20→17:56)
[2022-09-18 05:42] LABS: BASO % 0.7 % (0.0-1.0); EOS # 0.4 10^3/uL (0.0-0.5); HEMATOCRIT 27.3 % (42.0-52.0); HEMOGLOBIN 8.7 g/dl (13.5-17.5); LYMPH # 0.8 10^3/uL (1.5-5.0); LYMPH % 18.5 % (24.0-44.0); MEAN CORPUSCULAR HEMOGLOBIN 27.4 pg (27.0-33.0); MEAN CORPUSCULAR HGB CONC 31.9 g/dl (32.0-36.5); MEAN CORPUSCULAR VOLUME 85.8 fl (80.0-96.0); MONO # 0.2 10^3/uL (0.0-0.8); MONO % 5.6 % (2.0-8.0); NEUTROPHILS # 2.9 10^3/uL (1.5-8.5); PLATELET COUNT, AUTOMATED 117 10^3/uL (150-450); RED BLOOD COUNT 3.18 10^6/uL (4.30-6.10); WHITE BLOOD COUNT 4.3 10^3/uL (4.0-10.0)
[2022-09-18 06:04] LABS: MAGNESIUM LEVEL 1.4 MG/DL (1.8-2.4)
[2022-09-18 06:06] LABS: ALBUMIN 2.4 G/DL (3.2-5.2); ALKALINE PHOSPHATASE 111 U/L (46-116); ALT/SGPT < 9 U/L (7.0-40); AST/SGOT 25 U/L (<34); BILIRUBIN,TOTAL 0.3 MG/DL (0.3-1.2); BLOOD UREA NITROGEN 8 MG/DL (9-23); CALCIUM LEVEL 7.6 MG/DL (8.3-10.6); CARBON DIOXIDE LEVEL 25 MMOL/L (20-31); CHLORIDE LEVEL 105 MMOL/L (98-107); CREATININE FOR GFR 1.19 MG/DL (0.70-1.30); GLOMERULAR FILTRATION RATE > 60.0 (>49); GLUCOSE, FASTING 74 MG/DL (74-106); PHOSPHORUS LEVEL 2.2 MG/DL (2.4-5.1); POTASSIUM SERUM 3.4 MMOL/L (3.5-5.1); SODIUM LEVEL 139 MMOL/L (136-145); TOTAL PROTEIN 4.6 G/DL (5.7-8.2)
[2022-09-18 07:54] VITALS: BP 100/61
[2022-09-18] MEDS: FLUoxetine 20MG CAP PO SCH (08:25)
[2022-09-18] MEDS: FOLIC ACID 1MG TAB PO SCH (08:25)
[2022-09-18] MEDS: MAG SULF 1GM/100ML (MAG RUN) 1 GM in IV 1 EA IV SCH ×4 (08:25→11:15)
[2022-09-18] MEDS ORDERED: POTASSIUM PHOSPHATE INJ 20 MMOL in D5W 250 ML IV ONE (10:00)
[2022-09-18 12:00] VITALS: BP 95/57
[2022-09-18 16:00] VITALS: BP 109/61
[2022-09-18] MEDS: AMINO AC/ELECTROLYTE/DEX/CALC 1,000 ML IV SCH (17:49)
[2022-09-18] MEDS ORDERED: FAT EMULSION IV 250 ML IV ONE (18:00)
[2022-09-18 20:00] VITALS: BP 100/56
[2022-09-18] MEDS: HEPARIN SOD (PORCINE) 5000UNITS/ML 1ML VIAL/SYRINGE SQ SCH (22:08)
[2022-09-18] MEDS: LOPERAMIDE 2 MG CAPLET PO PRN (23:28)
[2022-09-19] VITALS (7 sets, daily range): BP systolic 84–109; BP diastolic 51–63
[2022-09-19 05:37] LABS: EOS # 0.4 10^3/uL (0.0-0.5); EOS % 11.8 % (0.0-3.0); HEMATOCRIT 23.6 % (42.0-52.0); HEMOGLOBIN 7.8 g/dl (13.5-17.5); LYMPH % 33.3 % (24.0-44.0); MEAN CORPUSCULAR HEMOGLOBIN 27.9 pg (27.0-33.0); MEAN CORPUSCULAR HGB CONC 33.1 g/dl (32.0-36.5); MEAN CORPUSCULAR VOLUME 84.3 fl (80.0-96.0); MONO # 0.2 10^3/uL (0.0-0.8); MONO % 6.5 % (2.0-8.0); NEUTROPHILS # 1.4 10^3/uL (1.5-8.5); NEUTROPHILS % 47.1 % (36.0-66.0); PLATELET COUNT, AUTOMATED 101 10^3/uL (150-450); WHITE BLOOD COUNT 3.1 10^3/uL (4.0-10.0)
[2022-09-19 05:57] LABS: ALBUMIN 2.2 G/DL (3.2-5.2); ALKALINE PHOSPHATASE 95 U/L (46-116); ALT/SGPT < 9 U/L (7.0-40); AST/SGOT 26 U/L (<34); BILIRUBIN,TOTAL 0.2 MG/DL (0.3-1.2); BLOOD UREA NITROGEN 10 MG/DL (9-23); CALCIUM LEVEL 7.4 MG/DL (8.3-10.6); CARBON DIOXIDE LEVEL 27 MMOL/L (20-31); CHLORIDE LEVEL 104 MMOL/L (98-107); CREATININE FOR GFR 1.25 MG/DL (0.70-1.30); GLOMERULAR FILTRATION RATE > 60.0 (>49); GLUCOSE, FASTING 82 MG/DL (74-106); POTASSIUM SERUM 3.8 MMOL/L (3.5-5.1); SODIUM LEVEL 137 MMOL/L (136-145); TOTAL PROTEIN 4.5 G/DL (5.7-8.2)
[2022-09-19] MEDS: HEPARIN SOD (PORCINE) 5000UNITS/ML 1ML VIAL/SYRINGE SQ SCH (06:00)
[2022-09-19] MEDS: INSULIN LISPRO (NovoLOG) PER UNIT SC SCH ×4 (06:00→17:24)
[2022-09-19] MEDS: FLUoxetine 20MG CAP PO SCH (09:54)
[2022-09-19] MEDS: FOLIC ACID 1MG TAB PO SCH (09:54)
[2022-09-19] MEDS: AMINO AC/ELECTROLYTE/DEX/CALC 1,000 ML IV SCH (17:34)
[2022-09-19] MEDS ORDERED: FAT EMULSION IV 250 ML IV ONE (18:00)
[2022-09-20] VITALS: BP 95/58
[2022-09-20] MEDS ORDERED: HYDROCORTISONE 100MG/2ML VIAL IV ONE
[2022-09-20 04:45] VITALS: BP 96/51
[2022-09-20] MEDS: INSULIN LISPRO (NovoLOG) PER UNIT SC SCH ×3 (05:46→11:31)
[2022-09-20 06:11] LABS: BASO % 0.6 % (0.0-1.0); EOS # 0.1 10^3/uL (0.0-0.5); EOS % 1.4 % (0.0-3.0); HEMATOCRIT 23.5 % (42.0-52.0); HEMOGLOBIN 7.7 g/dl (13.5-17.5); LYMPH # 0.4 10^3/uL (1.5-5.0); LYMPH % 12.5 % (24.0-44.0); MEAN CORPUSCULAR HEMOGLOBIN 27.8 pg (27.0-33.0); MEAN CORPUSCULAR HGB CONC 32.8 g/dl (32.0-36.5); MEAN CORPUSCULAR VOLUME 84.8 fl (80.0-96.0); MONO # 0.1 10^3/uL (0.0-0.8); MONO % 1.4 % (2.0-8.0); NEUTROPHILS % 83.8 % (36.0-66.0); PLATELET COUNT, AUTOMATED 128 10^3/uL (150-450); RED BLOOD COUNT 2.77 10^6/uL (4.30-6.10); WHITE BLOOD COUNT 3.5 10^3/uL (4.0-10.0)
[2022-09-20 06:33] LABS: MAGNESIUM LEVEL 1.8 MG/DL (1.8-2.4)
[2022-09-20 06:39] LABS: ALBUMIN 2.4 G/DL (3.2-5.2); ALKALINE PHOSPHATASE 133 U/L (46-116); ALT/SGPT < 9 U/L (7.0-40); AST/SGOT 32 U/L (<34); BILIRUBIN,TOTAL 0.2 MG/DL (0.3-1.2); BLOOD UREA NITROGEN 14 MG/DL (9-23); CALCIUM LEVEL 7.5 MG/DL (8.3-10.6); CARBON DIOXIDE LEVEL 24 MMOL/L (20-31); CHLORIDE LEVEL 103 MMOL/L (98-107); CREATININE FOR GFR 1.27 MG/DL (0.70-1.30); GLOMERULAR FILTRATION RATE > 60.0 (>49); GLUCOSE, FASTING 155 MG/DL (74-106); POTASSIUM SERUM 4.7 MMOL/L (3.5-5.1); SODIUM LEVEL 136 MMOL/L (136-145); TOTAL PROTEIN 4.7 G/DL (5.7-8.2)
[2022-09-20 08:00] VITALS: BP 101/58
[2022-09-20] MEDS: AMINO AC/ELECTROLYTE/DEX/CALC 1,000 ML IV SCH (09:24)
[2022-09-20] MEDS: FOLIC ACID 1MG TAB PO SCH (09:24)
[2022-09-20] MEDS: FLUoxetine 20MG CAP PO SCH (09:24)
[2022-09-20] MEDS ORDERED: fentaNYL 100 MCG/2 ML INJECTION As Ordered ONE (14:59)
[2022-09-20] MEDS ORDERED: propofoL 200 MG/20 ML VIAL As Ordered ONE (14:59)
[2022-09-20] MEDS ORDERED: LIDOCAINE 2% 100MG/5ML SDV (FOR ANES.) As Ordered ONE (14:59)
[2022-09-20] MEDS ORDERED: MIDAZOLAM INJ 2MG/2ML VIAL As Ordered ONE (15:21)
[2022-09-20] MEDS ORDERED: PHENYLephrine 500MCG 5ML (100MCG/ML) SYRINGE As Ordered ONE (15:38)
[2022-09-20 16:00] VITALS: BP 93/61
[2022-09-20] MEDS ORDERED: FAT EMULSION IV 250 ML IV ONE (18:00)
[2022-09-20] MEDS: CYCLOBENZAPRINE 10MG TABLET PO PRN (19:40)
[2022-09-20 20:00] VITALS: BP 118/56
[2022-09-20 22:00] VITALS: BP 102/65
[2022-09-21] MEDS: AMINO AC/ELECTROLYTE/DEX/CALC 1,000 ML IV SCH (02:08)
[2022-09-21 05:52] LABS: BASO % 0.8 % (0.0-1.0); EOS # 0.3 10^3/uL (0.0-0.5); EOS % 9.4 % (0.0-3.0); HEMATOCRIT 22.1 % (42.0-52.0); HEMOGLOBIN 7.3 g/dl (13.5-17.5); LYMPH # 1.2 10^3/uL (1.5-5.0); LYMPH % 32.2 % (24.0-44.0); MEAN CORPUSCULAR HEMOGLOBIN 27.8 pg (27.0-33.0); MONO # 0.3 10^3/uL (0.0-0.8); MONO % 7.5 % (2.0-8.0); NEUTROPHILS # 1.8 10^3/uL (1.5-8.5); NEUTROPHILS % 49.8 % (36.0-66.0); PLATELET COUNT, AUTOMATED 119 10^3/uL (150-450); RED BLOOD COUNT 2.63 10^6/uL (4.30-6.10); WHITE BLOOD COUNT 3.6 10^3/uL (4.0-10.0)
[2022-09-21 06:00] VITALS: BP 105/51
[2022-09-21 06:17] LABS: MAGNESIUM LEVEL 1.9 MG/DL (1.8-2.4)
[2022-09-21 06:22] LABS: BLOOD UREA NITROGEN 16 MG/DL (9-23); CALCIUM LEVEL 7.3 MG/DL (8.3-10.6); CARBON DIOXIDE LEVEL 32 MMOL/L (20-31); CHLORIDE LEVEL 101 MMOL/L (98-107); CREATININE FOR GFR 1.27 MG/DL (0.70-1.30); GLOMERULAR FILTRATION RATE > 60.0 (>49); GLUCOSE, FASTING 92 MG/DL (74-106); PHOSPHORUS LEVEL 3.2 MG/DL (2.4-5.1); POTASSIUM SERUM 4.6 MMOL/L (3.5-5.1); SODIUM LEVEL 136 MMOL/L (136-145)
[2022-09-21] MEDS: FLUoxetine 20MG CAP PO SCH (08:09)
[2022-09-21] MEDS: FOLIC ACID 1MG TAB PO SCH (08:09)
[2022-09-21 14:00] VITALS: BP 102/58
[2022-09-21 18:24] VITALS: BP 95/54
[2022-09-21 18:40] VITALS: BP 129/84
[2022-09-21 19:24] VITALS: BP 106/62
[2022-09-21 19:58] VITALS: BP 110/63
[2022-09-22 05:03] VITALS: BP 102/62
[2022-09-22 05:43] LABS: BASO % 0.6 % (0.0-1.0); EOS # 0.3 10^3/uL (0.0-0.5); EOS % 10.1 % (0.0-3.0); HEMATOCRIT 25.5 % (42.0-52.0); HEMOGLOBIN 8.4 g/dl (13.5-17.5); MEAN CORPUSCULAR HEMOGLOBIN 27.7 pg (27.0-33.0); MEAN CORPUSCULAR HGB CONC 32.9 g/dl (32.0-36.5); MEAN CORPUSCULAR VOLUME 84.2 fl (80.0-96.0); MONO # 0.3 10^3/uL (0.0-0.8); MONO % 7.5 % (2.0-8.0); NEUTROPHILS # 1.8 10^3/uL (1.5-8.5); NEUTROPHILS % 52.5 % (36.0-66.0); PLATELET COUNT, AUTOMATED 112 10^3/uL (150-450); RED BLOOD COUNT 3.03 10^6/uL (4.30-6.10); WHITE BLOOD COUNT 3.4 10^3/uL (4.0-10.0)
[2022-09-22 06:08] LABS: BLOOD UREA NITROGEN 22 MG/DL (9-23); CALCIUM LEVEL 7.6 MG/DL (8.3-10.6); CARBON DIOXIDE LEVEL 30 MMOL/L (20-31); CHLORIDE LEVEL 101 MMOL/L (98-107); CREATININE FOR GFR 1.22 MG/DL (0.70-1.30); GLOMERULAR FILTRATION RATE > 60.0 (>49); GLUCOSE, FASTING 76 MG/DL (74-106); POTASSIUM SERUM 4.6 MMOL/L (3.5-5.1); SODIUM LEVEL 136 MMOL/L (136-145)
[2022-09-22 08:00] VITALS: BP 90/55
[2022-09-22] MEDS: FOLIC ACID 1MG TAB PO SCH (08:51)
[2022-09-22] MEDS: FLUoxetine 20MG CAP PO SCH (08:51)
[2022-09-22] MEDS: LOPERAMIDE 2 MG CAPLET PO PRN (11:13)
[2022-09-22 16:00] VITALS: BP 99/54
[2022-09-22] MEDS: PANTOPRAZOLE 40MG TAB (PROTONIX) PO SCH (16:12)
[2022-09-22] MEDS: HEPARIN SOD (PORCINE) 5000UNITS/ML 1ML VIAL/SYRINGE SQ SCH (20:32)
[2022-09-22 20:41] VITALS: BP 98/58
[2022-09-22 22:09] VITALS: BP 92/53
[2022-09-23 02:00] VITALS: BP 93/52
[2022-09-23 06:00] VITALS: BP 91/51
[2022-09-23 06:32] LABS: BASO % 1.3 % (0.0-1.0); EOS # 0.3 10^3/uL (0.0-0.5); EOS % 10.4 % (0.0-3.0); HEMATOCRIT 25.5 % (42.0-52.0); HEMOGLOBIN 8.3 g/dl (13.5-17.5); LYMPH # 0.8 10^3/uL (1.5-5.0); LYMPH % 26.5 % (24.0-44.0); MEAN CORPUSCULAR HEMOGLOBIN 27.7 pg (27.0-33.0); MEAN CORPUSCULAR HGB CONC 32.5 g/dl (32.0-36.5); MONO # 0.3 10^3/uL (0.0-0.8); MONO % 8.2 % (2.0-8.0); NEUTROPHILS # 1.7 10^3/uL (1.5-8.5); NEUTROPHILS % 53.3 % (36.0-66.0); PLATELET COUNT, AUTOMATED 111 10^3/uL (150-450); WHITE BLOOD COUNT 3.2 10^3/uL (4.0-10.0)
[2022-09-23 07:03] LABS: BLOOD UREA NITROGEN 22 MG/DL (9-23); CALCIUM LEVEL 7.5 MG/DL (8.3-10.6); CARBON DIOXIDE LEVEL 32 MMOL/L (20-31); CHLORIDE LEVEL 101 MMOL/L (98-107); CREATININE FOR GFR 1.15 MG/DL (0.70-1.30); GLOMERULAR FILTRATION RATE > 60.0 (>49); GLUCOSE, FASTING 72 MG/DL (74-106); POTASSIUM SERUM 4.8 MMOL/L (3.5-5.1); SODIUM LEVEL 137 MMOL/L (136-145)
[2022-09-23] MEDS: FLUoxetine 20MG CAP PO SCH (08:56)
[2022-09-23] MEDS: FOLIC ACID 1MG TAB PO SCH (08:56)
[2022-09-23] MEDS: PANTOPRAZOLE 40MG TAB (PROTONIX) PO SCH (08:56)
[2022-09-23] MEDS: HEPARIN SOD (PORCINE) 5000UNITS/ML 1ML VIAL/SYRINGE SQ SCH ×2 (08:57→21:00)
[2022-09-23 14:00] VITALS: BP 124/76
[2022-09-23 20:00] VITALS: BP 102/60
[2022-09-23] MEDS ORDERED: NS 1,000 ML IV SCH (21:15)
[2022-09-24] VITALS (14 sets, daily range): BP systolic 82–122; BP diastolic 58–69
[2022-09-24] MEDS: LOPERAMIDE 2 MG CAPLET PO PRN ×2 (02:03→04:19)
[2022-09-24] MEDS ORDERED: NS 500 ML IV ONE (02:25)
[2022-09-24 06:33] LABS: BASO % 1.4 % (0.0-1.0); EOS # 0.3 10^3/uL (0.0-0.5); EOS % 11.9 % (0.0-3.0); HEMATOCRIT 25.4 % (42.0-52.0); HEMOGLOBIN 8.2 g/dl (13.5-17.5); LYMPH # 0.7 10^3/uL (1.5-5.0); LYMPH % 31.1 % (24.0-44.0); MEAN CORPUSCULAR HEMOGLOBIN 27.7 pg (27.0-33.0); MEAN CORPUSCULAR HGB CONC 32.3 g/dl (32.0-36.5); MEAN CORPUSCULAR VOLUME 85.8 fl (80.0-96.0); MONO # 0.2 10^3/uL (0.0-0.8); MONO % 7.3 % (2.0-8.0); NEUTROPHILS # 1.1 10^3/uL (1.5-8.5); NEUTROPHILS % 48.3 % (36.0-66.0); PLATELET COUNT, AUTOMATED 104 10^3/uL (150-450); RED BLOOD COUNT 2.96 10^6/uL (4.30-6.10); WHITE BLOOD COUNT 2.2 10^3/uL (4.0-10.0)
[2022-09-24 06:40] LABS: BLOOD UREA NITROGEN 20 MG/DL (9-23); CALCIUM LEVEL 7.3 MG/DL (8.3-10.6); CARBON DIOXIDE LEVEL 27 MMOL/L (20-31); CHLORIDE LEVEL 102 MMOL/L (98-107); CREATININE FOR GFR 1.08 MG/DL (0.70-1.30); GLOMERULAR FILTRATION RATE > 60.0 (>49); GLUCOSE, FASTING 69 MG/DL (74-106); POTASSIUM SERUM 4.5 MMOL/L (3.5-5.1); SODIUM LEVEL 137 MMOL/L (136-145)
[2022-09-24] MEDS ORDERED: LIDOCAINE 2% 100MG/5ML SDV (FOR ANES.) As Ordered ONE (08:48)
[2022-09-24] MEDS ORDERED: ePHEDrine SULFATE 25 MG/5 ML(5MG/ML) SYRINGE As Ordered ONE (08:48)
[2022-09-24] MEDS ORDERED: SEVOFLURANE INHAL SOLN 250 ML BTL As Ordered ONE (08:48)
[2022-09-24] MEDS ORDERED: MIDAZOLAM INJ 2MG/2ML VIAL As Ordered ONE (08:48)
[2022-09-24] MEDS ORDERED: propofoL 200 MG/20 ML VIAL As Ordered ONE (08:48)
[2022-09-24] MEDS ORDERED: fentaNYL 100 MCG/2 ML INJECTION As Ordered ONE (08:48)
[2022-09-24] MEDS ORDERED: LR 1,000 ML IV SCH (09:20)
[2022-09-24] MEDS ORDERED: fentaNYL 100 MCG/2 ML INJECTION IV PRN (09:20)
[2022-09-24] MEDS ORDERED: ONDANSETRON 4MG 2ML VIAL IV PRN (09:20)
[2022-09-24] MEDS ORDERED: LIDOCAINE 1% MDV 20ML VIAL SQ ONE (09:27)
[2022-09-24] MEDS ORDERED: D5W/LR 1,000 ML IV SCH (11:00)
[2022-09-24] MEDS: FOLIC ACID 1MG TAB PO SCH (16:35)
[2022-09-24] MEDS: PANTOPRAZOLE 40MG TAB (PROTONIX) PO SCH (16:35)
[2022-09-24] MEDS: FLUoxetine 20MG CAP PO SCH (16:35)
[2022-09-24] MEDS: CYCLOBENZAPRINE 10MG TABLET PO PRN (16:36)
[2022-09-24] MEDS ORDERED: LR 1,000 ML IV ONE (22:30)
[2022-09-24] MEDS: HEPARIN SOD (PORCINE) 5000UNITS/ML 1ML VIAL/SYRINGE SQ SCH (22:52)
[2022-09-24] MEDS: ACETAMINOPHEN TAB 650MG DOSE (2X325MG) PO PRN (23:13)
[2022-09-25] VITALS (10 sets, daily range): BP systolic 82–114; BP diastolic 50–73; O2SAT 97
[2022-09-25] MEDS ORDERED: LR 1,000 ML IV ONE ×2 (00:40→02:10)
[2022-09-25 02:19] LABS: APPEARANCE, URINE MANUAL CLEAR (CLEAR); BILIRUBIN, URINE MANUAL NEGATIVE (NEGATIVE); BLOOD URINE MANUAL POSITIVE (NEGATIVE); COLOR, URINE MANUAL YELLOW (YELLOW); GLUCOSE, URINE (UA) MANUAL NEGATIVE (NEGATIVE); KETONE, URINE MANUAL NEGATIVE (NEGATIVE); LEUKOCYTE ESTERASE, URINE MAN POSITIVE (NEGATIVE); NITRITE, URINE MANUAL NEGATIVE (NEGATIVE); PH,URINE MAN 1.005 UNITS (5.0 - 7.0); PROTEIN, URINE MANUAL NEGATIVE (NEGATIVE); UROBILINOGEN, URINE MANUAL NORMAL (NORMAL)
[2022-09-25 02:25] LABS: BACTERIA, URINE NONE SEEN; HYALINE CAST, URINE NONE SEEN /lpf (0-1); MUCUS, URINE SMALL AMOUNT (NEGATIVE); RBC, URINE TNTC /hpf (0-3); SQUAMOUS EPITHELIAL CELL URINE SMALL AMOUNT /hpf (SMALL AMT)
[2022-09-25] MEDS ORDERED: D5W/0.9% SODIUM CHLORIDE 1,000 ML IV SCH (02:35)
[2022-09-25 02:57] LABS: BASO % 0.5 % (0.0-1.0); EOS # 0.2 10^3/uL (0.0-0.5); EOS % 4.3 % (0.0-3.0); HEMATOCRIT 24.4 % (42.0-52.0); HEMOGLOBIN 7.9 g/dl (13.5-17.5); LYMPH # 0.5 10^3/uL (1.5-5.0); LYMPH % 13.2 % (24.0-44.0); MEAN CORPUSCULAR HGB CONC 32.4 g/dl (32.0-36.5); MEAN CORPUSCULAR VOLUME 86.5 fl (80.0-96.0); MONO # 0.3 10^3/uL (0.0-0.8); MONO % 6.4 % (2.0-8.0); NEUTROPHILS % 75.3 % (36.0-66.0); RED BLOOD COUNT 2.82 10^6/uL (4.30-6.10); WHITE BLOOD COUNT 3.9 10^3/uL (4.0-10.0)
[2022-09-25] MEDS ORDERED: cefTRIAXone SOD 1 GM in D5W MINI-BAG PLUS 50 ML IV SCH (03:00)
[2022-09-25 03:12] LABS: PLATELET COUNT, AUTOMATED 94 10^3/uL (150-450)
[2022-09-25 03:16] LABS: MAGNESIUM LEVEL 1.4 MG/DL (1.8-2.4)
[2022-09-25 03:17] LABS: BLOOD UREA NITROGEN 15 MG/DL (9-23); CALCIUM LEVEL 7.4 MG/DL (8.3-10.6); CARBON DIOXIDE LEVEL 32 MMOL/L (20-31); CHLORIDE LEVEL 101 MMOL/L (98-107); GLOMERULAR FILTRATION RATE > 60.0 (>49); GLUCOSE, FASTING 84 MG/DL (74-106); POTASSIUM SERUM 4.6 MMOL/L (3.5-5.1); SODIUM LEVEL 135 MMOL/L (136-145)
[2022-09-25] MEDS ORDERED: MAGNESIUM OXIDE 400MG TAB (MAG-OX) PO SCH (04:00)
[2022-09-25] MEDS ORDERED: FOSFOMYCIN TROMETHAMINE 3 GM POWDER PACKET (MONUROL) PO ONE (04:00)
[2022-09-25] MEDS ORDERED: MIDODRINE 5 MG TAB PO ONE (04:00)
[2022-09-25] MEDS: MAG SULF 1GM/100ML (MAG RUN) 1 GM in IV 1 EA IV SCH ×2 (04:03→05:15)
[2022-09-25] MEDS ORDERED: METOCLOPRAMIDE INJ 10MG/2ML VIAL IV PRN (06:50)
[2022-09-25] MEDS: HEPARIN SOD (PORCINE) 5000UNITS/ML 1ML VIAL/SYRINGE SQ SCH ×2 (09:00→21:00)
[2022-09-25] MEDS: FOLIC ACID 1MG TAB PO SCH (10:27)
[2022-09-25] MEDS: FLUoxetine 20MG CAP PO SCH (10:27)
[2022-09-25] MEDS: PANTOPRAZOLE 40MG TAB (PROTONIX) PO SCH (10:27)
[2022-09-25] MEDS: DEXTROSE 50% 50ML SYRINGE IV PRN ×2 (11:53→13:24)
[2022-09-25] MEDS: D5W/0.9% SODIUM CHLORIDE 1,000 ML IV SCH ×2 (12:08→21:57)
[2022-09-26] VITALS (14 sets, daily range): BP systolic 79–100; BP diastolic 39–60; O2SAT 95–97
[2022-09-26] MEDS ORDERED: NS 500 ML IV ONE ×3 (00:15→02:35)
[2022-09-26] MEDS ORDERED: MIDODRINE 5 MG TAB PO ONE ×2 (02:00→04:00)
[2022-09-26] MEDS: METOCLOPRAMIDE INJ 10MG/2ML VIAL IV SCH ×3 (06:04→17:50)
[2022-09-26 06:38] LABS: BASO % 0.4 % (0.0-1.0); EOS # 0.2 10^3/uL (0.0-0.5); EOS % 3.5 % (0.0-3.0); HEMATOCRIT 24.4 % (42.0-52.0); HEMOGLOBIN 7.9 g/dl (13.5-17.5); LYMPH # 0.5 10^3/uL (1.5-5.0); MEAN CORPUSCULAR HEMOGLOBIN 28.1 pg (27.0-33.0); MEAN CORPUSCULAR HGB CONC 32.4 g/dl (32.0-36.5); MEAN CORPUSCULAR VOLUME 86.8 fl (80.0-96.0); MONO # 0.4 10^3/uL (0.0-0.8); MONO % 5.2 % (2.0-8.0); NEUTROPHILS # 5.7 10^3/uL (1.5-8.5); NEUTROPHILS % 83.6 % (36.0-66.0); PLATELET COUNT, AUTOMATED 101 10^3/uL (150-450); RED BLOOD COUNT 2.81 10^6/uL (4.30-6.10); WHITE BLOOD COUNT 6.9 10^3/uL (4.0-10.0)
[2022-09-26 06:56] LABS: MAGNESIUM LEVEL 1.6 MG/DL (1.8-2.4)
[2022-09-26 06:58] LABS: BLOOD UREA NITROGEN 17 MG/DL (9-23); CARBON DIOXIDE LEVEL 25 MMOL/L (20-31); CHLORIDE LEVEL 104 MMOL/L (98-107); CREATININE FOR GFR 1.25 MG/DL (0.70-1.30); GLOMERULAR FILTRATION RATE > 60.0 (>49); GLUCOSE, FASTING 78 MG/DL (74-106); PHOSPHORUS LEVEL 2.8 MG/DL (2.4-5.1); POTASSIUM SERUM 4.2 MMOL/L (3.5-5.1); SODIUM LEVEL 137 MMOL/L (136-145)
[2022-09-26] MEDS: HEPARIN SOD (PORCINE) 5000UNITS/ML 1ML VIAL/SYRINGE SQ SCH ×2 (07:59→22:26)
[2022-09-26] MEDS ORDERED: MAG SULF 1GM/100ML (MAG RUN) 1 GM in IV 1 EA IV ONE (08:00)
[2022-09-26] MEDS: FOLIC ACID 1MG TAB PO SCH (09:29)
[2022-09-26] MEDS: PANTOPRAZOLE 40MG TAB (PROTONIX) PO SCH (09:30)
[2022-09-26] MEDS: FLUoxetine 20MG CAP PO SCH (09:30)
[2022-09-27] VITALS (8 sets, daily range): BP systolic 99–127; BP diastolic 56–76; O2SAT 97
[2022-09-27 06:03] LABS: BASO % 0.7 % (0.0-1.0); EOS # 0.5 10^3/uL (0.0-0.5); EOS % 9.9 % (0.0-3.0); HEMATOCRIT 23.9 % (42.0-52.0); HEMOGLOBIN 7.8 g/dl (13.5-17.5); LYMPH # 0.7 10^3/uL (1.5-5.0); LYMPH % 14.3 % (24.0-44.0); MEAN CORPUSCULAR HEMOGLOBIN 28.1 pg (27.0-33.0); MEAN CORPUSCULAR HGB CONC 32.6 g/dl (32.0-36.5); MONO # 0.3 10^3/uL (0.0-0.8); MONO % 5.5 % (2.0-8.0); NEUTROPHILS # 3.2 10^3/uL (1.5-8.5); NEUTROPHILS % 69.2 % (36.0-66.0); PLATELET COUNT, AUTOMATED 104 10^3/uL (150-450); RED BLOOD COUNT 2.78 10^6/uL (4.30-6.10); WHITE BLOOD COUNT 4.6 10^3/uL (4.0-10.0)
[2022-09-27 06:33] LABS: MAGNESIUM LEVEL 1.8 MG/DL (1.8-2.4)
[2022-09-27 06:35] LABS: BLOOD UREA NITROGEN 17 MG/DL (9-23); CALCIUM LEVEL 7.5 MG/DL (8.3-10.6); CARBON DIOXIDE LEVEL 27 MMOL/L (20-31); CHLORIDE LEVEL 102 MMOL/L (98-107); CREATININE FOR GFR 1.13 MG/DL (0.70-1.30); GLOMERULAR FILTRATION RATE > 60.0 (>49); GLUCOSE, FASTING 87 MG/DL (74-106); POTASSIUM SERUM 4.1 MMOL/L (3.5-5.1); SODIUM LEVEL 137 MMOL/L (136-145)
[2022-09-27] MEDS: HEPARIN SOD (PORCINE) 5000UNITS/ML 1ML VIAL/SYRINGE SQ SCH ×2 (08:46→19:33)
[2022-09-27] MEDS: METOCLOPRAMIDE INJ 10MG/2ML VIAL IV SCH ×3 (08:51→18:46)
[2022-09-27] MEDS: FOLIC ACID 1MG TAB PO SCH (08:52)
[2022-09-27] MEDS: FLUoxetine 20MG CAP PO SCH (08:52)
[2022-09-27] MEDS: PANTOPRAZOLE 40MG TAB (PROTONIX) PO SCH (08:52)
[2022-09-27] MEDS ORDERED: MIRALAX *UNIT DOSE* 17GM PACKET PO ONE (17:30)
[2022-09-27] MEDS ORDERED: SENNA 8.6 MG TAB (SENOKOT) PO ONE (17:30)
[2022-09-28] VITALS (8 sets, daily range): BP systolic 95–126; BP diastolic 59–77; O2SAT 94
[2022-09-28 06:05] LABS: BASO # 0.1 10^3/uL (0.0-0.2); BASO % 1.2 % (0.0-1.0); EOS # 0.5 10^3/uL (0.0-0.5); EOS % 11.4 % (0.0-3.0); HEMATOCRIT 26.5 % (42.0-52.0); HEMOGLOBIN 8.4 g/dl (13.5-17.5); LYMPH # 0.8 10^3/uL (1.5-5.0); LYMPH % 19.2 % (24.0-44.0); MEAN CORPUSCULAR HEMOGLOBIN 27.5 pg (27.0-33.0); MEAN CORPUSCULAR HGB CONC 31.7 g/dl (32.0-36.5); MEAN CORPUSCULAR VOLUME 86.9 fl (80.0-96.0); MONO # 0.2 10^3/uL (0.0-0.8); MONO % 5.7 % (2.0-8.0); NEUTROPHILS # 2.6 10^3/uL (1.5-8.5); PLATELET COUNT, AUTOMATED 133 10^3/uL (150-450); RED BLOOD COUNT 3.05 10^6/uL (4.30-6.10); WHITE BLOOD COUNT 4.2 10^3/uL (4.0-10.0)
[2022-09-28 06:26] LABS: MAGNESIUM LEVEL 1.6 MG/DL (1.8-2.4)
[2022-09-28 06:28] LABS: BLOOD UREA NITROGEN 15 MG/DL (9-23); CALCIUM LEVEL 7.7 MG/DL (8.3-10.6); CARBON DIOXIDE LEVEL 34 MMOL/L (20-31); CHLORIDE LEVEL 99 MMOL/L (98-107); CREATININE FOR GFR 1.05 MG/DL (0.70-1.30); GLOMERULAR FILTRATION RATE > 60.0 (>49); GLUCOSE, FASTING 77 MG/DL (74-106); POTASSIUM SERUM 4.6 MMOL/L (3.5-5.1); SODIUM LEVEL 136 MMOL/L (136-145)
[2022-09-28] MEDS ORDERED: MAG SULF 1GM/100ML (MAG RUN) 1 GM in IV 1 EA IV ONE (08:00)
[2022-09-28] MEDS: METOCLOPRAMIDE INJ 10MG/2ML VIAL IV SCH ×3 (09:44→17:08)
[2022-09-28] MEDS: PANTOPRAZOLE 40MG TAB (PROTONIX) PO SCH (09:45)
[2022-09-28] MEDS: FOLIC ACID 1MG TAB PO SCH (09:45)
[2022-09-28] MEDS: MAGNESIUM OXIDE 400MG TAB (MAG-OX) PO SCH ×2 (09:45→22:43)
[2022-09-28] MEDS: FLUoxetine 20MG CAP PO SCH (09:45)
[2022-09-28] MEDS: HEPARIN SOD (PORCINE) 5000UNITS/ML 1ML VIAL/SYRINGE SQ SCH ×2 (09:46→22:43)
[2022-09-29 05:49] LABS: BASO # 0.1 10^3/uL (0.0-0.2); BASO % 1.3 % (0.0-1.0); EOS # 0.5 10^3/uL (0.0-0.5); EOS % 13.3 % (0.0-3.0); HEMATOCRIT 25.4 % (42.0-52.0); HEMOGLOBIN 8.1 g/dl (13.5-17.5); LYMPH # 0.9 10^3/uL (1.5-5.0); LYMPH % 22.8 % (24.0-44.0); MEAN CORPUSCULAR HEMOGLOBIN 27.4 pg (27.0-33.0); MEAN CORPUSCULAR HGB CONC 31.9 g/dl (32.0-36.5); MEAN CORPUSCULAR VOLUME 85.8 fl (80.0-96.0); MONO # 0.3 10^3/uL (0.0-0.8); MONO % 6.6 % (2.0-8.0); NEUTROPHILS # 2.2 10^3/uL (1.5-8.5); NEUTROPHILS % 55.5 % (36.0-66.0); PLATELET COUNT, AUTOMATED 145 10^3/uL (150-450); RED BLOOD COUNT 2.96 10^6/uL (4.30-6.10); WHITE BLOOD COUNT 3.9 10^3/uL (4.0-10.0)
[2022-09-29 06:00] VITALS: BP 106/58
[2022-09-29 06:25] LABS: MAGNESIUM LEVEL 1.5 MG/DL (1.8-2.4)
[2022-09-29 06:27] LABS: BLOOD UREA NITROGEN 15 MG/DL (9-23); CALCIUM LEVEL 7.4 MG/DL (8.3-10.6); CARBON DIOXIDE LEVEL 34 MMOL/L (20-31); CHLORIDE LEVEL 97 MMOL/L (98-107); CREATININE FOR GFR 0.99 MG/DL (0.70-1.30); GLOMERULAR FILTRATION RATE > 60.0 (>49); GLUCOSE, FASTING 74 MG/DL (74-106); POTASSIUM SERUM 4.9 MMOL/L (3.5-5.1); SODIUM LEVEL 134 MMOL/L (136-145)
[2022-09-29 07:30] VITALS: O2SAT 94
[2022-09-29 08:00] VITALS: BP 90/60
[2022-09-29] MEDS ORDERED: MAG SULF 1GM/100ML (MAG RUN) 1 GM in IV 1 EA IV ONE (08:00)
[2022-09-29] MEDS: METOCLOPRAMIDE INJ 10MG/2ML VIAL IV SCH ×3 (08:29→18:01)
[2022-09-29] MEDS: FLUoxetine 20MG CAP PO SCH (09:33)
[2022-09-29] MEDS: PANTOPRAZOLE 40MG TAB (PROTONIX) PO SCH (09:33)
[2022-09-29] MEDS: FOLIC ACID 1MG TAB PO SCH (09:33)
[2022-09-29] MEDS: HEPARIN SOD (PORCINE) 5000UNITS/ML 1ML VIAL/SYRINGE SQ SCH ×2 (09:34→21:47)
[2022-09-29] MEDS: MAGNESIUM OXIDE 400MG TAB (MAG-OX) PO SCH ×2 (10:00→17:59)
[2022-09-29 11:00] VITALS: BP 100/65
[2022-09-29] MEDS: MIDODRINE 2.5 MG TAB PO SCH ×2 (13:13→17:59)
[2022-09-29 14:00] VITALS: BP 104/64
[2022-09-29 20:00] VITALS: BP 108/72
[2022-09-30] MEDS: MAGNESIUM OXIDE 400MG TAB (MAG-OX) PO SCH ×4 (00:11→23:05)
[2022-09-30] MEDS: CYCLOBENZAPRINE 10MG TABLET PO PRN ×2 (01:47→23:06)
[2022-09-30 06:00] VITALS: BP 110/70
[2022-09-30] MEDS: FLUoxetine 20MG CAP PO SCH (08:24)
[2022-09-30] MEDS: MIDODRINE 2.5 MG TAB PO SCH ×3 (08:24→15:57)
[2022-09-30] MEDS: PANTOPRAZOLE 40MG TAB (PROTONIX) PO SCH (08:24)
[2022-09-30] MEDS: FOLIC ACID 1MG TAB PO SCH (08:24)
[2022-09-30] MEDS: METOCLOPRAMIDE INJ 10MG/2ML VIAL IV SCH ×3 (08:24→18:03)
[2022-09-30] MEDS: HEPARIN SOD (PORCINE) 5000UNITS/ML 1ML VIAL/SYRINGE SQ SCH ×2 (08:25→23:07)
[2022-09-30 08:26] VITALS: BP 102/64
[2022-09-30 12:31] VITALS: BP 108/66
[2022-09-30 14:00] VITALS: BP 104/70
[2022-09-30 15:55] VITALS: BP 116/76
[2022-09-30 22:00] VITALS: BP_SYST 104; BP_SYST 126; BP_DIAS 63; BP_DIAS 85
[2022-09-30] MEDS: ACETAMINOPHEN TAB 650MG DOSE (2X325MG) PO PRN (23:06)
[2022-09-30] MEDS: MIRTAZAPINE 15 MG TAB PO SCH (23:06)
[2022-10-01 06:00] VITALS: BP 101/70
[2022-10-01] MEDS: FOLIC ACID 1MG TAB PO SCH (08:39)
[2022-10-01] MEDS: FLUoxetine 20MG CAP PO SCH (08:39)
[2022-10-01] MEDS: PANTOPRAZOLE 40MG TAB (PROTONIX) PO SCH (08:39)
[2022-10-01] MEDS: MAGNESIUM OXIDE 400MG TAB (MAG-OX) PO SCH ×3 (08:39→23:54)
[2022-10-01] MEDS: METOCLOPRAMIDE INJ 10MG/2ML VIAL IV SCH ×3 (08:40→17:12)
[2022-10-01] MEDS: MIDODRINE 2.5 MG TAB PO SCH ×3 (08:43→16:04)
[2022-10-01] MEDS: HEPARIN SOD (PORCINE) 5000UNITS/ML 1ML VIAL/SYRINGE SQ SCH ×2 (08:45→23:53)
[2022-10-01 12:29] VITALS: BP 108/76
[2022-10-01 14:00] VITALS: BP 110/64
[2022-10-01 22:00] VITALS: BP 102/54
[2022-10-01] MEDS: MIRTAZAPINE 15 MG TAB PO SCH (23:53)
[2022-10-02 06:00] VITALS: BP 104/52
[2022-10-02] MEDS: FOLIC ACID 1MG TAB PO SCH (09:48)
[2022-10-02] MEDS: MIDODRINE 2.5 MG TAB PO SCH ×3 (09:48→16:55)
[2022-10-02] MEDS: PANTOPRAZOLE 40MG TAB (PROTONIX) PO SCH (09:49)
[2022-10-02] MEDS: FLUoxetine 20MG CAP PO SCH (09:49)
[2022-10-02] MEDS: HEPARIN SOD (PORCINE) 5000UNITS/ML 1ML VIAL/SYRINGE SQ SCH ×2 (09:49→23:43)
[2022-10-02] MEDS: MAGNESIUM OXIDE 400MG TAB (MAG-OX) PO SCH ×3 (09:49→23:43)
[2022-10-02] MEDS: METOCLOPRAMIDE INJ 10MG/2ML VIAL IV SCH ×3 (09:55→16:55)
[2022-10-02 18:15] VITALS: BP 109/65
[2022-10-02] MEDS ORDERED: CALCIUM CARBONATE 500 MG CHEW U/D PO ONE (18:45)
[2022-10-02] MEDS ORDERED: IBUPROFEN 600MG TAB PO ONE (18:50)
[2022-10-02 19:26] LABS: CK-MB VALUE MASS < 1.0 NG/ML (<3.6)
[2022-10-02 19:27] LABS: CPK CREATINE PHOSPHOKINASE 21 U/L (46-171); MB/CK RELATIVE INDEX 4.76 (< OR =4)
[2022-10-02] MEDS: CYCLOBENZAPRINE 10MG TABLET PO PRN (19:27)
[2022-10-02] MEDS: MIRTAZAPINE 15 MG TAB PO SCH (19:27)
[2022-10-03 06:19] VITALS: BP 100/42
[2022-10-03] MEDS: LIDOCAINE 5% (LIDODERM) PATCH TD SCH (10:50)
[2022-10-03] MEDS: MIDODRINE 2.5 MG TAB PO SCH ×3 (10:50→18:33)
[2022-10-03] MEDS: METOCLOPRAMIDE 5 MG TAB PEG SCH ×3 (10:51→18:33)
[2022-10-03] MEDS: FOLIC ACID 1MG TAB PO SCH (10:51)
[2022-10-03] MEDS: ACETAMINOPHEN TAB 650MG DOSE (2X325MG) PO PRN (10:51)
[2022-10-03] MEDS: CYCLOBENZAPRINE 10MG TABLET PO PRN (10:51)
[2022-10-03] MEDS: HEPARIN SOD (PORCINE) 5000UNITS/ML 1ML VIAL/SYRINGE SQ SCH ×2 (10:52→21:22)
[2022-10-03] MEDS: FLUoxetine 20MG CAP PO SCH (10:52)
[2022-10-03] MEDS: MAGNESIUM OXIDE 400MG TAB (MAG-OX) PO SCH ×2 (10:54→18:34)
[2022-10-03] MEDS: OMEPRAZOLE SUSPENSION 20MG 10ML ORAL SYRINGE PEG SCH ×2 (14:30→21:22)
[2022-10-03] MEDS ORDERED: NORCO, ANEXSIA 5/325MG TABLET (HYDROcodone/ACETAMINOPHEN) PO ONE (15:00)
[2022-10-03] MEDS: MIRTAZAPINE 15 MG TAB PO SCH (21:22)
[2022-10-04] MEDS: MAGNESIUM OXIDE 400MG TAB (MAG-OX) PO SCH ×3 (00:09→18:24)
[2022-10-04 06:39] VITALS: BP 106/56
[2022-10-04] MEDS: LIDOCAINE 5% (LIDODERM) PATCH TD SCH (10:09)
[2022-10-04] MEDS: METOCLOPRAMIDE 5 MG TAB PEG SCH ×3 (10:11→18:23)
[2022-10-04] MEDS: OMEPRAZOLE SUSPENSION 20MG 10ML ORAL SYRINGE PEG SCH ×2 (10:11→21:49)
[2022-10-04] MEDS: MIDODRINE 2.5 MG TAB PO SCH ×3 (10:11→18:24)
[2022-10-04] MEDS: FOLIC ACID 1MG TAB PO SCH (10:11)
[2022-10-04] MEDS: FLUoxetine 20MG CAP PO SCH (10:12)
[2022-10-04] MEDS: HEPARIN SOD (PORCINE) 5000UNITS/ML 1ML VIAL/SYRINGE SQ SCH ×2 (10:12→21:48)
[2022-10-04 17:40] VITALS: O2SAT 98
[2022-10-04] MEDS: MIRTAZAPINE 15 MG TAB PO SCH (21:48)
[2022-10-05] MEDS: MAGNESIUM OXIDE 400MG TAB (MAG-OX) PO SCH ×3 (00:42→16:00)
[2022-10-05 05:56] VITALS: BP 96/56
[2022-10-05 06:00] VITALS: O2SAT 99
[2022-10-05] MEDS: MIDODRINE 2.5 MG TAB PO SCH ×3 (08:21→17:33)
[2022-10-05] MEDS: FLUoxetine 20MG CAP PO SCH (08:21)
[2022-10-05] MEDS: FOLIC ACID 1MG TAB PO SCH (08:21)
[2022-10-05] MEDS: HEPARIN SOD (PORCINE) 5000UNITS/ML 1ML VIAL/SYRINGE SQ SCH ×2 (08:22→22:19)
[2022-10-05] MEDS: LIDOCAINE 5% (LIDODERM) PATCH TD SCH (08:22)
[2022-10-05] MEDS: METOCLOPRAMIDE 5 MG TAB PEG SCH ×3 (08:22→17:33)
[2022-10-05] MEDS: OMEPRAZOLE SUSPENSION 20MG 10ML ORAL SYRINGE PEG SCH ×2 (08:22→22:20)
[2022-10-05] MEDS ORDERED: [UNRECOGNIZED DRUG - OTHER] MC (10:04)
[2022-10-05] MEDS ORDERED: MAGN400T2 PO (10:11)
[2022-10-05] MEDS ORDERED: MIRT-10 PO (10:11)
[2022-10-05] MEDS ORDERED: Omeprazole Suspension PEG (10:11)
[2022-10-05] MEDS ORDERED: MIDO2.5T PO (10:11)
[2022-10-05] MEDS ORDERED: LOPE2CA PO (10:11)
[2022-10-05] MEDS ORDERED: METO5TAB2 PEG (10:11)
[2022-10-05] MEDS ORDERED: PREV15TA2 PO (10:14)
[2022-10-05] MEDS: MIRTAZAPINE 15 MG TAB PO SCH (22:20)
[2022-10-06] MEDS: MAGNESIUM OXIDE 400MG TAB (MAG-OX) PO SCH ×3 (00:36→16:15)
[2022-10-06] MEDS: ACETAMINOPHEN TAB 650MG DOSE (2X325MG) PO PRN ×3 (03:12→22:06)
[2022-10-06 05:52] VITALS: BP 102/56
[2022-10-06 07:30] VITALS: BP 112/64
[2022-10-06] MEDS: MIDODRINE 2.5 MG TAB PO SCH ×3 (09:27→16:14)
[2022-10-06] MEDS: FOLIC ACID 1MG TAB PO SCH (09:27)
[2022-10-06] MEDS: METOCLOPRAMIDE 5 MG TAB PEG SCH ×3 (09:28→17:39)
[2022-10-06] MEDS: FLUoxetine 20MG CAP PO SCH (09:29)
[2022-10-06] MEDS: HEPARIN SOD (PORCINE) 5000UNITS/ML 1ML VIAL/SYRINGE SQ SCH ×2 (09:29→21:29)
[2022-10-06] MEDS: OMEPRAZOLE SUSPENSION 20MG 10ML ORAL SYRINGE PEG SCH ×2 (09:29→21:29)
[2022-10-06] MEDS: LIDOCAINE 5% (LIDODERM) PATCH TD SCH (09:30)
[2022-10-06] MEDS: MIRTAZAPINE 15 MG TAB PO SCH (21:29)
[2022-10-06] MEDS: CYCLOBENZAPRINE 10MG TABLET PO PRN (22:05)
[2022-10-07] MEDS: MAGNESIUM OXIDE 400MG TAB (MAG-OX) PO SCH ×3 (00:17→16:32)
[2022-10-07 06:24] VITALS: BP 110/68
[2022-10-07] MEDS: LIDOCAINE 5% (LIDODERM) PATCH TD SCH (08:24)
[2022-10-07] MEDS: MIDODRINE 2.5 MG TAB PO SCH ×3 (08:24→16:32)
[2022-10-07] MEDS: METOCLOPRAMIDE 5 MG TAB PEG SCH ×3 (08:24→16:32)
[2022-10-07] MEDS: OMEPRAZOLE SUSPENSION 20MG 10ML ORAL SYRINGE PEG SCH ×2 (08:24→21:00)
[2022-10-07] MEDS: HEPARIN SOD (PORCINE) 5000UNITS/ML 1ML VIAL/SYRINGE SQ SCH ×2 (08:24→20:44)
[2022-10-07] MEDS: FOLIC ACID 1MG TAB PO SCH (08:24)
[2022-10-07] MEDS: FLUoxetine 20MG CAP PO SCH (08:25)
[2022-10-07] MEDS: MIRTAZAPINE 15 MG TAB PO SCH (21:00)
[2022-10-08 05:30] VITALS: BP 98/60
[2022-10-08 06:32] LABS: BASO # 0.1 10^3/uL (0.0-0.2); BASO % 1.7 % (0.0-1.0); EOS # 0.6 10^3/uL (0.0-0.5); EOS % 15.7 % (0.0-3.0); HEMATOCRIT 25.8 % (42.0-52.0); HEMOGLOBIN 8.4 g/dl (13.5-17.5); LYMPH # 0.7 10^3/uL (1.5-5.0); LYMPH % 18.5 % (24.0-44.0); MEAN CORPUSCULAR HEMOGLOBIN 28.6 pg (27.0-33.0); MEAN CORPUSCULAR HGB CONC 32.6 g/dl (32.0-36.5); MEAN CORPUSCULAR VOLUME 87.8 fl (80.0-96.0); MONO # 0.4 10^3/uL (0.0-0.8); MONO % 8.7 % (2.0-8.0); NEUTROPHILS # 2.2 10^3/uL (1.5-8.5); NEUTROPHILS % 55.2 % (36.0-66.0); PLATELET COUNT, AUTOMATED 245 10^3/uL (150-450); RED BLOOD COUNT 2.94 10^6/uL (4.30-6.10)
[2022-10-08 06:45] VITALS: BP 98/68
[2022-10-08 06:57] LABS: BLOOD UREA NITROGEN 27 MG/DL (9-23); CALCIUM LEVEL 8.4 MG/DL (8.3-10.6); CARBON DIOXIDE LEVEL 33 MMOL/L (20-31); CHLORIDE LEVEL 90 MMOL/L (98-107); GLOMERULAR FILTRATION RATE > 60.0 (>49); GLUCOSE, FASTING 92 MG/DL (74-106); POTASSIUM SERUM 5.5 MMOL/L (3.5-5.1); SODIUM LEVEL 128 MMOL/L (136-145)
[2022-10-08 07:32] VITALS: BP 104/62
[2022-10-08] MEDS: OMEPRAZOLE SUSPENSION 20MG 10ML ORAL SYRINGE PEG SCH ×2 (08:55→22:17)
[2022-10-08] MEDS: LIDOCAINE 5% (LIDODERM) PATCH TD SCH (08:55)
[2022-10-08] MEDS: FLUoxetine 20MG CAP PO SCH (08:56)
[2022-10-08] MEDS: MAGNESIUM OXIDE 400MG TAB (MAG-OX) PO SCH (08:56)
[2022-10-08] MEDS: HEPARIN SOD (PORCINE) 5000UNITS/ML 1ML VIAL/SYRINGE SQ SCH ×2 (08:56→22:17)
[2022-10-08] MEDS: FOLIC ACID 1MG TAB PO SCH (08:57)
[2022-10-08] MEDS: MIDODRINE 2.5 MG TAB PO SCH ×3 (08:57→17:52)
[2022-10-08] MEDS: METOCLOPRAMIDE 5 MG TAB PEG SCH ×3 (08:57→17:52)
[2022-10-08 14:00] VITALS: BP 103/62
[2022-10-08] MEDS: MIRTAZAPINE 15 MG TAB PO SCH (22:17)
[2022-10-09 05:30] VITALS: BP 92/56
[2022-10-09 05:37] VITALS: BP 92/56
[2022-10-09] MEDS: MIDODRINE 2.5 MG TAB PO SCH ×3 (05:56→17:44)
[2022-10-09 09:03] LABS: BLOOD UREA NITROGEN 29 MG/DL (9-23); CALCIUM LEVEL 7.7 MG/DL (8.3-10.6); CARBON DIOXIDE LEVEL 32 MMOL/L (20-31); CHLORIDE LEVEL 92 MMOL/L (98-107); CREATININE FOR GFR 1.03 MG/DL (0.70-1.30); GLOMERULAR FILTRATION RATE > 60.0 (>49); GLUCOSE, FASTING 87 MG/DL (74-106); POTASSIUM SERUM 5.1 MMOL/L (3.5-5.1); SODIUM LEVEL 129 MMOL/L (136-145)
[2022-10-09] MEDS: FOLIC ACID 1MG TAB PO SCH (09:36)
[2022-10-09] MEDS: MAGNESIUM OXIDE 400MG TAB (MAG-OX) PO SCH (09:37)
[2022-10-09] MEDS: FLUoxetine 20MG CAP PO SCH (09:37)
[2022-10-09] MEDS: OMEPRAZOLE SUSPENSION 20MG 10ML ORAL SYRINGE PEG SCH ×2 (09:37→21:50)
[2022-10-09] MEDS: HEPARIN SOD (PORCINE) 5000UNITS/ML 1ML VIAL/SYRINGE SQ SCH ×2 (09:37→21:48)
[2022-10-09] MEDS: LIDOCAINE 5% (LIDODERM) PATCH TD SCH (09:41)
[2022-10-09] MEDS: METOCLOPRAMIDE 5 MG TAB PEG SCH ×3 (09:41→17:45)
[2022-10-09 12:40] VITALS: BP 94/56
[2022-10-09] MEDS: CYCLOBENZAPRINE 10MG TABLET PO PRN (12:55)
[2022-10-09 17:46] VITALS: BP 98/64
[2022-10-09 21:06] VITALS: BP 100/62
[2022-10-09] MEDS: MIRTAZAPINE 15 MG TAB PO SCH (21:49)
[2022-10-10 06:00] VITALS: BP 98/66
[2022-10-10] MEDS: MAGNESIUM OXIDE 400MG TAB (MAG-OX) PO SCH (07:59)
[2022-10-10] MEDS: MIDODRINE 2.5 MG TAB PO SCH ×3 (07:59→17:51)
[2022-10-10] MEDS: FLUoxetine 20MG CAP PO SCH (07:59)
[2022-10-10] MEDS: METOCLOPRAMIDE 5 MG TAB PEG SCH ×3 (07:59→17:51)
[2022-10-10] MEDS: LIDOCAINE 5% (LIDODERM) PATCH TD SCH (07:59)
[2022-10-10] MEDS: OMEPRAZOLE SUSPENSION 20MG 10ML ORAL SYRINGE PEG SCH ×2 (08:00→21:28)
[2022-10-10] MEDS: FOLIC ACID 1MG TAB PO SCH (08:00)
[2022-10-10] MEDS: HEPARIN SOD (PORCINE) 5000UNITS/ML 1ML VIAL/SYRINGE SQ SCH ×2 (08:00→21:29)
[2022-10-10] MEDS ORDERED: E-Z-PAQUE 96% w/w SUSP 176GM BTL As Ordered ONE (10:21)
[2022-10-10] MEDS ORDERED: E-Z-GAS II EFFERVESCENT PACKET (SODIUM BICARB./CITRIC ACID/SIMETHICONE) As Ordered ONE (10:21)
[2022-10-10] MEDS ORDERED: E-Z-HD 98% w/w 340GM SUSP BTL As Ordered ONE (10:22)
[2022-10-10 14:00] VITALS: BP 115/68
[2022-10-10] MEDS: MIRTAZAPINE 15 MG TAB PO SCH (21:28)
[2022-10-11 05:49] VITALS: BP 110/52
[2022-10-11] MEDS: HEPARIN SOD (PORCINE) 5000UNITS/ML 1ML VIAL/SYRINGE SQ SCH ×2 (08:00→20:53)
[2022-10-11] MEDS: OMEPRAZOLE SUSPENSION 20MG 10ML ORAL SYRINGE PEG SCH ×2 (08:00→20:51)
[2022-10-11] MEDS: METOCLOPRAMIDE 5 MG TAB PEG SCH ×3 (08:01→16:34)
[2022-10-11] MEDS: MAGNESIUM OXIDE 400MG TAB (MAG-OX) PO SCH (08:01)
[2022-10-11] MEDS: MIDODRINE 2.5 MG TAB PO SCH ×3 (08:01→16:34)
[2022-10-11] MEDS: LIDOCAINE 5% (LIDODERM) PATCH TD SCH (08:01)
[2022-10-11] MEDS: FLUoxetine 20MG CAP PO SCH (08:01)
[2022-10-11] MEDS: FOLIC ACID 1MG TAB PO SCH (08:01)
[2022-10-11] MEDS: MIRTAZAPINE 15 MG TAB PO SCH (20:51)
[2022-10-12 05:53] VITALS: BP 118/60
[2022-10-12] MEDS: MAGNESIUM OXIDE 400MG TAB (MAG-OX) PO SCH (09:00)
[2022-10-12] MEDS: MIDODRINE 2.5 MG TAB PO SCH ×3 (09:15→17:14)
[2022-10-12] MEDS: FOLIC ACID 1MG TAB PO SCH (09:15)
[2022-10-12] MEDS: METOCLOPRAMIDE 5 MG TAB PEG SCH ×3 (09:15→17:14)
[2022-10-12] MEDS: FLUoxetine 20MG CAP PO SCH (09:15)
[2022-10-12] MEDS: HEPARIN SOD (PORCINE) 5000UNITS/ML 1ML VIAL/SYRINGE SQ SCH ×2 (09:15→20:40)
[2022-10-12] MEDS: LIDOCAINE 5% (LIDODERM) PATCH TD SCH (09:16)
[2022-10-12] MEDS: OMEPRAZOLE SUSPENSION 20MG 10ML ORAL SYRINGE PEG SCH ×2 (09:16→20:39)
[2022-10-12] MEDS: MIRTAZAPINE 15 MG TAB PO SCH (20:39)
[2022-10-13 06:00] VITALS: BP 105/60
[2022-10-13] MEDS: METOCLOPRAMIDE 5 MG TAB PEG SCH ×3 (08:09→15:59)
[2022-10-13] MEDS: FOLIC ACID 1MG TAB PO SCH (08:09)
[2022-10-13] MEDS: MIDODRINE 2.5 MG TAB PO SCH ×3 (08:09→15:58)
[2022-10-13] MEDS: FLUoxetine 20MG CAP PO SCH (08:09)
[2022-10-13] MEDS: MAGNESIUM OXIDE 400MG TAB (MAG-OX) PO SCH (08:09)
[2022-10-13] MEDS: OMEPRAZOLE SUSPENSION 20MG 10ML ORAL SYRINGE PEG SCH ×2 (08:10→21:00)
[2022-10-13] MEDS: HEPARIN SOD (PORCINE) 5000UNITS/ML 1ML VIAL/SYRINGE SQ SCH ×2 (08:10→21:00)
[2022-10-13] MEDS: LIDOCAINE 5% (LIDODERM) PATCH TD SCH (08:10)
[2022-10-13] MEDS: MIRTAZAPINE 15 MG TAB PO SCH (21:00)
[2022-10-14 06:13] VITALS: BP 115/68
[2022-10-14 06:41] LABS: RSV AMPLIFICATION NEGATIVE (NEGATIVE)
[2022-10-14] MEDS: METOCLOPRAMIDE 5 MG TAB PEG SCH ×2 (07:13→12:21)
[2022-10-14] MEDS: OMEPRAZOLE SUSPENSION 20MG 10ML ORAL SYRINGE PEG SCH (08:12)
[2022-10-14] MEDS: FOLIC ACID 1MG TAB PO SCH (08:13)
[2022-10-14] MEDS: LIDOCAINE 5% (LIDODERM) PATCH TD SCH (08:13)
[2022-10-14] MEDS: HEPARIN SOD (PORCINE) 5000UNITS/ML 1ML VIAL/SYRINGE SQ SCH (08:13)
[2022-10-14] MEDS: FLUoxetine 20MG CAP PO SCH (08:13)
[2022-10-14] MEDS: MIDODRINE 2.5 MG TAB PO SCH ×2 (08:13→12:21)
[2022-10-14] MEDS: MAGNESIUM OXIDE 400MG TAB (MAG-OX) PO SCH (08:13)
== END 2022-10-14 14:30 | DRG 391 ==
LOC: M ED 13:49 → M ED INP 22:25 → ENRESERV 23:28 → M PCU 09-15 03:05 → M MSPAV 09-22 22:03
PROVIDERS: ADMIT Internal Medicine; ATTEND Student in an Organized Health Care Education/Training Program
PROC: 0DJ08ZZ Inspection of Upper Intestinal Tract, Via Natural or Artificial Opening Endoscopic (ICD-10-PCS; principal; 2022-09-20 13:24)
PROC: 0DH64UZ Insertion of Feeding Device into Stomach, Percutaneous Endoscopic Approach (ICD-10-PCS; 2022-09-24)
DX: R19.7 Diarrhea, unspecified (principal); E43 Unspecified severe protein-calorie malnutrition; N13.30 Unspecified hydronephrosis; N17.9 Acute kidney failure, unspecified; N39.0 Urinary tract infection, site not specified; Z68.1 Body mass index [BMI] 19.9 or less, adult; D61.818 Other pancytopenia; K63.9 Disease of intestine, unspecified; K22.2 Esophageal obstruction; R62.7 Adult failure to thrive; D46.9 Myelodysplastic syndrome, unspecified; I48.0 Paroxysmal atrial fibrillation; K21.9 Gastro-esophageal reflux disease without esophagitis; J45.20 Mild intermittent asthma, uncomplicated; R13.12 Dysphagia, oropharyngeal phase; R33.9 Retention of urine, unspecified; I10 Essential (primary) hypertension; F32.A Depression, unspecified; M45.9 Ankylosing spondylitis of unspecified sites in spine; Z88.2 Allergy status to sulfonamides; Z79.899 Other long term (current) drug therapy; E87.6 Hypokalemia; E83.42 Hypomagnesemia; F41.9 Anxiety disorder, unspecified; E53.8 Deficiency of other specified B group vitamins; E16.2 Hypoglycemia, unspecified